=== PATIENT | male | born 1940 | race Asian ===

== ENCOUNTER 2024-01-07 17:11 | Inpatient (IN) ==
[2024-01-07] MEDS: fentaNYL citrate PF 100 MCG/2 ML VIAL IV STA ×3 (17:48→20:35)
[2024-01-07 17:50] LABS: Basophils # (auto) 0.03 K/uL (0.00-0.20); Basophils % (auto) 0.5 %; Eosinophils # (auto) 0.34 K/uL (0.00-0.50); Eosinophils % (auto) 5.9 %; Hematocrit (blood only) 40.2 % (42.0-52.0); Hemoglobin 13.7 g/dl (14.0-18.0); Immature Granulocytes # (auto) 0.02 K/uL (0.01-0.20); Immature Granulocytes % (auto) 0.3 %; Lymphocytes # (auto) 1.74 K/uL (1.20-3.40); Lymphocytes % (auto) 30.1 %; Mean Corpuscular Hemoglobin 31.3 pg (25.0-34.0); Mean Corpuscular Hgb Conc 34.1 g/dL (32.0-36.0); Mean Corpuscular Volume 91.8 fL (80.0-100.0); Mean Platelet Volume 9.1 fL (9.4-12.4); Monocytes # (auto) 0.52 K/uL (0.11-0.59); Neutrophils # (auto) 3.14 K/uL (1.40-6.50); Neutrophils % (auto) 54.2 %; Platelet Count 264 K/uL (130-400); RDW Coefficient of Variation 11.6 % (11.5-14.5); RDW Standard Deviation 39.3 fL (36.4-46.3); Red Blood Count 4.38 M/uL (4.70-6.10); White Blood Count 5.79 K/ul (4.8-10.8)
--- NOTE | 2024-01-07 17:59 | Emergency Department Note ---
Impression & Plan Pancreatitis, Nausea & vomiting ED Provider Note Provider: Poncho Colmenares MD CHIEF COMPLAINT: Chest epigastric pain, short of breath HISTORY OF PRESENT ILLNESS: Patient is a 83-year-old gentleman prediabetic history of enlarged prostate and hypertension presenting here today with and daughter reporting over the past week he has had some intermittent epigastric discomfort. Significant worsened since midday today. Little short of breath but no nausea vomiting or diarrhea. No lower abdominal pain. Pain right at the lower chest quite severe. No trauma. No fevers reported. Does have a distant history about 20 years ago pancreatitis. Some chronic unchanged dizziness patient reports. PAST MEDICAL HISTORY: As noted above MEDICATIONS: Reviewed home medication list SOCIAL HISTORY: PHYSICAL EXAM: GENERAL: alert and oriented appears uncomfortable on stretcher family at bedside Head: normocephalic and atraumatic EYES: No injection, discharge or icterus. EOMI. NECK: Trachea midline. ENT: Mucous membranes pink and moist. LUNGS: Airway patent. No retractions. Breath sounds clear with good air entry bilaterally. HEART: Regular rate and rhythm. No chest wall tenderness ABDOMEN: Soft some acute gastric discomfort but no lower abdominal discomfort. SKIN: Acyanotic, warm, dry, without rashes EXTREMITIES: Without swelling, tenderness or deformity NEUROLOGICAL: No focal deficits. No aphasia. No facial droop or slurred speech. Normal strength and tone in the extremities. Sensation to gross touch normal. Ambulatory. EK bpm normal sinus rhythm. No PVC or PAC. No acute ST segment elevation or depression with a QTc of 396. CONTINUOUS CARDIAC MONITORING: was ordered and showed a heart rate of 60s to 70s bpm in normal sinus rhythm Patient's laboratory studies and imaging reviewed. Differential includes Cardiac ischemia, aortic dissection, pulmonary embolism, pneumothorax, pneumonia, pericarditis, myocarditis, esophageal rupture, GERD, cholecystitis, pancreatitis, musculoskeletal, as well as other pathologies. IMPRESSION/MEDICAL DECISION MAKING: Patient with epigastric lower chest discomfort. No nausea vomiting or diarrhea. Some epigastric tenderness on exam. EKG reassuring. Troponin is sent to look for any occult cardiac etiology. Reports a little bit of shortness of breath but not hypoxic here or significantly tachycardic. He is somewhat hypertensive. Will obtain CT scan to exclude dissection with low suspicion for PE. Do question especially the history of pancreatitis if this could be recurrence. Basic blood work including LFTs and lipase are sent. Given some fentanyl for pain. 1 view chest x-ray quickly obtained without evidence of pneumonia, pneumothorax, or free air per my interpretation although radiology questions may be some streaking on the right base. Blood work here without significant renal dysfunction or electrolyte abnormality notable. No significant anemia on blood work today. Normal white blood cell count and platelet count. No significant bilirubin elevation or and with normal ALT and alkaline phosphatase minimally elevated AST of 98. Lipase of 7300 likely explains his symptoms with pancreatitis. Given some Zofran he did develop some nausea here. CTA without evidence of aortic dissection or aneurysm with some atherosclerotic disease. Numerous gallstones noted in the gallbladder on imaging. Patient without somewhat right upper quadrant pain is mainly epigastric pain believe he is likely suffering predominantly from pancreatitis. Updated patient and family. Given additional doses of fentanyl and Zofran for pain control. Does not appear septic at this time. Given some IV fluids. Will bring into the hospital for further symptom control and care. Hospitalist team contacted. They requested an ultrasound be completed in the right upper quadrant ultrasound was ordered. MRCP ordered by the hospitalist completed as well with findings of acute pancreatitis but no biliary stone or dilation noted by report. Patient admitted by the hospitalist. DIAGNOSIS: Pancreatitis, gastric pain, nausea and vomiting DISPOSITION: Hospitalist will evaluate Patient was agreeable with this plan. Past Med/Surg History Problem List (Updated 01/07/24 @ 18:56 by Poncho Colmenares M.D.) Nausea & vomiting (Acute) Pancreatitis (Acute) Phimosis Enlarged prostate Status post left inguinal hernia repair Encounter for pre-operative examination Constipation (Acute) Syncope, near (Acute) Tympanic membrane perforation Hearing loss Cerumen impaction Left inguinal hernia Diabetes Hypertension Hyperlipemia Medical History BPH (benign prostatic hyperplasia) Glaucoma Hearing deficit History of back problems Hx of pancreatitis Hyperlipidemia Hypertension Prediabetes Surgical History H/O eye surgery H/O right inguinal hernia repair History of cataract surgery History of tooth extraction Hx of colonoscopy Nausea and vomiting after administration of anesthetic agent S/P left inguinal hernia repair (10/04/21) Family History Father Heart disease Hypertension Stroke Brother Hearing loss Heart disease Stroke Asthma Other No family history of adverse response to anesthesia No family history of allergies No family history of bleeding disorder Denies family history of Cancer Social History Smoking Status: Never smoker Second Hand Exposure: No; Do You Dip or Chew Tobacco: No; Hx Alcohol Use: No Hx Substance Use: No Preferred Language: Vietnamese Communication Ability: Effective Visual Impairment: No Limitations Professor Of Literature Required: No Beliefs That Will Affect Care: None marital status: Current Living Situation: Family current occupational status: retired How many Children do You have: 2 Feels Safe at Home: Yes during the past year weight has: decreased > 10 lbs Assistive Devices: Glasses and Hearing Aid - Bilateral Allergies Allergies Allergy/AdvReac Type Severity Reaction Status Date / Time midazolam AdvReac Intermediate vomiting, Verified 11/09/21 11:07 NAUSEA promethazine AdvReac Intermediate urinary Verified 11/09/21 11:07 retention mushroom AdvReac Mild GI SYMPTOMS Verified 11/09/21 11:07 olive extract AdvReac Mild GI SYMPTOMS Verified 11/09/21 11:07 Unclassified Drugs AdvReac Mild ANESTHESIA Uncoded 11/09/21 11:07 - GI SYMPTOMS Home Meds Home Medications Medication Instructions Recorded Confirmed amlodipine 5 mg tablet 5 mg PO QAM 07/13/20 05/07/23 atorvastatin 10 mg tablet 10 mg PO [id number] 07/13/20 05/07/23 brinzolamide 1 % eye 1 drp ophthalmic (eye) BID 07/13/20 05/07/23 drops,suspension (Azopt) dutasteride 0.5 mg-tamsulosin ER 1 cap PO QPM 07/13/20 05/07/23 0.4 mg capsule ext.release 24hr mphas lisinopril 20 1 tab PO QPM 07/13/20 05/07/23 mg-hydrochlorothiazide 25 mg tablet metformin 500 mg tablet 500 mg PO QPM 07/13/20 05/07/23 tafluprost (PF) 0.0015 % eye drops 1 drp ophthalmic (eye) DAILY 07/13/20 05/07/23 in a dropperette (Zioptan (PF)) beta-sitosterol 125 mg-vit D3 10 1 tab PO QPM 09/30/21 05/07/23 [id number] 250 mg tablet (Prostate Max Plus) cholecalciferol (vitamin D3) 50 50 mcg PO DAILY 09/30/21 05/07/23 mcg (2,000 unit) capsule cyanocobalamin (vitamin B-12) 500 500 mcg PO QAM 09/30/21 05/07/23 mcg tablet omega-3 fatty acids-fish oil 360 1 cap PO QAM 09/30/21 05/07/23 mg-1,200 mg capsule (Fish Oil) Previous Rx's Medication Instructions Recorded betamethasone valerate 0.1 % 1 applic topical BID PRN phimosis 05/07/23 topical ointment #15 grams vibegron 75 mg tablet 75 mg PO DAILY #30 tabs 05/07/23 Results & Data (ED) Vital Signs Vital Signs - 24 hr 01/07/24 17:14 01/07/24 17:14 01/07/24 17:14 Temperature Temperature Source Pulse Rate Pulse Rate [Apical] Pulse Rate from SpO2 Sensor Respiratory Rate Respiratory Effort / Characteristics Grunting Labored Respiratory Depth Normal Respiratory Pattern Regular Blood Pressure Blood Pressure [Left Arm] Blood Pressure Mean Blood Pressure Mean [Left Arm] Pulse Oximetry 98 Oxygen Delivery Method Room Air Room Air Room Air Sepsis Recent Fever Within 48 Hours Sepsis New/Unexplained Change in Mental Status Sepsis Action Taken by Nursing 01/07/24 17:19 01/07/24 17:30 01/07/24 17:34 Temperature 36.6 C Temperature Source Skin Pulse Rate 78 71 Pulse Rate [Apical] Pulse Rate from SpO2 Sensor 70 Respiratory Rate 18 25 H Respiratory Effort / Characteristics Respiratory Depth Respiratory Pattern Blood Pressure 141/63 H 154/82 H Blood Pressure [Left Arm] Blood Pressure Mean 89 106 Blood Pressure Mean [Left Arm] Pulse Oximetry 98 98 98 Oxygen Delivery Method Room Air Room Air Sepsis Recent Fever Within 48 Hours No Sepsis New/Unexplained Change in Mental Status No Sepsis Action Taken by Nursing No Action Required 01/07/24 17:36 01/07/24 18:20 01/07/24 18:27 Temperature Temperature Source Pulse Rate 71 64 Pulse Rate [Apical] 62 Pulse Rate from SpO2 Sensor 64 Respiratory Rate 19 17 Respiratory Effort / Characteristics Non-Labored Spontaneous Respiratory Depth Normal Respiratory Pattern Regular Blood Pressure 126/41 L Blood Pressure [Left Arm] 111/50 L Blood Pressure Mean 69 Blood Pressure Mean [Left Arm] 70 Pulse Oximetry 93 96 Oxygen Delivery Method Room Air Sepsis Recent Fever Within 48 Hours Sepsis New/Unexplained Change in Mental Status Sepsis Action Taken by Nursing 01/07/24 19:08 01/07/24 20:02 Temperature Temperature Source Pulse Rate 63 71 Pulse Rate [Apical] Pulse Rate from SpO2 Sensor 65 71 Respiratory Rate 19 17 Respiratory Effort / Characteristics Respiratory Depth Respiratory Pattern Blood Pressure 141/65 H 159/80 H Blood Pressure [Left Arm] Blood Pressure Mean 90 106 Blood Pressure Mean [Left Arm] Pulse Oximetry 97 97 Oxygen Delivery Method Sepsis Recent Fever Within 48 Hours Sepsis New/Unexplained Change in Mental Status Sepsis Action Taken by Nursing Laboratory Data 01/07/24 17:36 01/07/24 17:36 Lab Results 01/07/24 01/07/24 01/07/24 Range/Units 17:36 17:51 17:53 WBC 5.79 (4.8-10.8) K/ul RBC 4.38 L (4.70-6.10) M/uL Hgb 13.7 L (14.0-18.0) g/dl POC Hgb 13.6 L (14.0-18.0) g/dl Hct 40.2 L (42.0-52.0) % POC Hct 40 L (42-52) % MCV 91.8 (80.0-100.0) fL MCH 31.3 (25.0-34.0) pg MCHC 34.1 (32.0-36.0) g/dL RDW Std Deviation 39.3 (36.4-46.3) fL RDW Coeff of Selina 11.6 (11.5-14.5) % Plt Count 264 (130-400) K/uL MPV 9.1 L (9.4-12.4) fL Immature Gran % (Auto) 0.3 % Neut % (Auto) 54.2 % Lymph % (Auto) 30.1 % [place] % (Auto) 9.0 % Eos % (Auto) 5.9 % Baso % (Auto) 0.5 % Neut # (Auto) 3.14 (1.40-6.50) K/uL Lymph # (Auto) 1.74 (1.20-3.40) K/uL [place] # (Auto) 0.52 (0.11-0.59) K/uL Eos # (Auto) 0.34 (0.00-0.50) K/uL Baso # (Auto) 0.03 (0.00-0.20) K/uL Immature Gran # (Auto) 0.02 (0.01-0.20) K/uL PT 10.9 (9.0-12.0) Seconds INR 1.0 (0.9-1.1) APTT 25 (21-31) Seconds PTT Ratio 0.9 POC Sodium 136 (135-144) mmol/L Sodium 136 (136-145) mmol/L POC Potassium 3.9 (3.3-5.0) mmol/L Potassium 4.0 (3.5-5.1) mmol/L POC Chloride 98 L (101-112) mmol/L Chloride 99 (98-107) mmol/L Carbon Dioxide 31 (21-32) mmol/L POC Total CO2 25 (24-31) mmol/L Anion Gap 6 (3-11) POC Anion Gap 17.0 (16-25) mmol/L POC BUN 13 (7-18) mg/dl BUN 15 (6-23) mg/dl Creatinine 0.75 (0.6-1.4) mg/dl POC Creatinine 0.7 (0.6-1.3) mg/dl Est Cr Clr Drug Dosing 61.4 ml/min eGFR 88.98 BUN/Creatinine Ratio 20.0 (10-20) Glucose 131 H (70-99(Fasting)) mg/dl POC Glucose 139 H (70-99) mg/dl POC Glucose (other) 125 H (70-99) mg/dl Calcium 10.0 (8.6-10.3) mg/dl POC Ioniz Calcium Yosef 1.23 (1.12-1.32) mmol/l Total Bilirubin 0.9 (0.2-1.0) mg/dl AST 98 H (13-39) U/L ALT 50 (7-52) U/L Alkaline Phosphatase 79 (34-104) U/L Troponin I High Sens 6.0 (0-20) pg/ml Total Protein 7.5 (6.0-8.3) gm/dl Albumin 4.5 (3.4-5.0) gm/dl Globulin 3.0 (2.5-4.0) gm/dl Albumin/Globulin Ratio 1.5 (0.9-2) Lipase 7381 H (11-82) U/L Administered Medications Discontinued Medications Fentanyl Citrate (Fentanyl Citrate Pf 100 Mcg/2 Ml Vial) 50 mcg IV NOW STA Stop: 01/07/24 17:43 Last Admin: 01/07/24 17:48 Dose: 50 mcg Documented By: MARY BETH Fentanyl Citrate (Fentanyl Citrate Pf 100 Mcg/2 Ml Vial) 50 mcg IV NOW STA Stop: 01/07/24 18:40 Last Admin: 01/07/24 18:46 Dose: 50 mcg Documented By: VASILE Fentanyl Citrate (Fentanyl Citrate Pf 100 Mcg/2 Ml Vial) 50 mcg IV NOW STA Stop: 01/07/24 19:31 Last Admin: 01/07/24 20:35 Dose: Not Given Documented By: VASILE Hydromorphone HCl (Hydromorphone Inj 0.5 Mg/0.5 Ml Syr) 0.25 mg IV NOW STA Stop: 01/07/24 19:37 Last Admin: 01/07/24 19:53 Dose: 0.25 mg Documented By: VASILE Sodium Chloride (Nss) 500 mls @ 999 mls/hr IV .Q31M ONE Stop: 01/07/24 19:22 Last Infusion: 01/07/24 19:59 Dose: Infused Documented By: Admin: 01/07/24 18:58 Dose: 999 mls/hr Documented By: VASILE Ioversol (Optiray 320 125ml) 119 ml IV ONCE ONE Stop: 01/07/24 18:10 Last Admin: 01/07/24 18:12 Dose: 119 ml Documented By: OLLIE Ondansetron HCl (Ondansetron Inj 2 Mg/Ml 2 Ml Vial) 4 mg IV NOW STA Stop: 01/07/24 18:17 Last Admin: 01/07/24 18:18 Dose: 4 mg Documented By: MARY BETH Ondansetron HCl (Ondansetron Inj 2 Mg/Ml 2 Ml Vial) Confirm Administered Dose 4 mg .ROUTE .STK-MED ONE Stop: 01/07/24 18:18 Last Admin: 01/07/24 18:18 Dose: Not Given Documented By: MARY BETH Ondansetron HCl (Ondansetron Inj 2 Mg/Ml 2 Ml Vial) 4 mg IV NOW STA Stop: 01/07/24 18:53 Last Admin: 01/07/24 18:58 Dose: 4 mg Documented By: VASILE Ondansetron HCl (Ondansetron Inj 2 Mg/Ml 2 Ml Vial) 4 mg IV NOW STA Stop: 01/07/24 19:31 Last Admin: 01/07/24 19:52 Dose: 4 mg Documented By: VASILE Imaging Data Radiologist's Impression: Chest X-Ray 01/07/24 17:34 EXAM: X-ray chest one-view portable CLINICAL HISTORY: Chest pain PRIORS: None TECHNIQUE: Upright portable AP chest frontal FINDINGS: Patient is rotated. Lung volumes are diminished. Mediastinum may be widened on the basis of patient rotation. Moderate atherosclerotic disease of the aorta within the [id number]. No pleural effusion. Possible subtle opacification in the right lung base. Heart size is normal. No pneumothorax. Trachea is patent. Osseous structures demonstrate no acute abnormality. No radiopaque foreign body. IMPRESSION: The possibility of streaky opacity in the right lower lobe is raised, allowing for patient rotation. Finding could suggest pneumonia in the proper clinical setting. Please correlate clinically. ACT 112: Positive. There are findings on this examination that require communication between the performing entity and the patient following Patient Test Result Information Act ([place] ACT 112) guidelines. Electronically signed by Marva Sultana 01-07-2024 6:09 PM Abdomen/Pelvis CTA 01/07/24 17:43 EXAMINATION: CT angio abdomen pelvis with con CLINICAL HISTORY: Epigastric pain, dyspnea PRIORS: None TECHNIQUE: Contiguous CTA axial images were obtained through the abdomen and pelvis with the use of intravenous contrast. Sagittal and coronal reformations are supplied. FINDINGS: The abdominal aorta is normal in caliber with moderate atherosclerotic disease. No intimal flap, surrounding inflammatory change or extravasation. No aneurysmal dilatation. No retroperitoneal hemorrhage. Allowing for arterial phase, the gallbladder contains innumerable layering gallstones. The liver, pancreas, spleen, stomach, adrenals, kidneys are morphologically unremarkable. Appendix is normal in the right lower quadrant. Urinary bladder shows circumferential wall thickening with moderate enlargement of the prostate. A moderate to large amount of formed stool present in the colon. No pericolonic inflammatory change. No free fluid in the pelvis. No hemoperitoneum. In bone windows, moderate osseous demineralization noted. Degenerative change of the lumbosacral spine. IMPRESSION: 1. No CTA evidence of an abdominal aorta dissection or aneurysmal dilatation. 2. Innumerable gallstones identified within the gallbladder lumen. Right upper quadrant ultrasound could be considered given the history of epigastric pain. Electronically signed by Marva Sultana 01-07-2024 6:49 PM Chest CTA 01/07/24 17:43 EXAMINATION: CT angio chest dissection without/with contrast CLINICAL HISTORY: Epigastric pain, dyspnea PRIORS: Chest x-ray 01/07/2024 TECHNIQUE: Contiguous axial images were obtained through the chest with the use of intravenous contrast. Sagittal and coronal reformations are supplied. FINDINGS: Noncontrast enhanced images show advanced atherosclerotic disease of the thoracic aorta. No fluid in the mediastinum or surrounding inflammatory change. No pneumomediastinum. Contrast-enhanced images show the ascending aorta measures 3.6 x 3.4 cm, allowing for the absence of gating with no intimal flap or extravasation identified. The descending thoracic aorta demonstrates advanced atherosclerotic disease with no dissection or hemodynamically significant stenosis. Heart size is enlarged. No central pulmonary embolism is identified. No pleural or pericardial effusion. Liquid within the distal portion of the esophagus within the [id number]. No adenopathy in the chest. In lung windows, chest is well-expanded. No dominant mass or airspace consolidation. No pneumothorax. No displaced rib fracture. Moderate osseous demineralization and degenerative change throughout the thoracic spine. IMPRESSION: 1. No CTA evidence of a thoracic aorta dissection. 2. Ascending aorta measures approximately 3.6 cm with moderate atherosclerotic disease. 3. No acute cardiopulmonary process. Electronically signed by Marva Sultana 01-07-2024 6:49 PM Cholangiopancreatography MRI 01/07/24 19:32 Exam(s): MRI MRCP EXAM: MR Abdomen Without Intravenous Contrast, MRCP Protocol CLINICAL HISTORY: Reason for exam: transaminitis, pancreatitis, gallstones. TECHNIQUE: Multiplanar magnetic resonance images of the abdomen without intravenous contrast using MRCP protocol. COMPARISON: CTA abdomen and pelvis 01/07/24 FINDINGS: Lung bases are clear. There is cholelithiasis, gallbladder distention, gallbladder wall edema. There is no intrahepatic or extrahepatic biliary dilatation. Common bile duct measures 7 mm, normal in caliber for patient age. There is no choledocholithiasis. Liver, spleen, and adrenal glands are unremarkable. There is a benign subcentimeter T2 hyperintense cyst in the left kidney; no follow-up is indicated. Kidneys appear otherwise unremarkable. There is no hydronephrosis. There is edema and fluid along the pancreas without pancreatic duct dilatation or organized peripancreatic collection. IMPRESSION: 1. Peripancreatic edema and fluid suggesting acute pancreatitis. Correlate with serum lipase. 2. Cholelithiasis and gallbladder wall edema, cholecystitis not excluded. 3. No biliary dilatation or choledocholithiasis. Electronically signed by: Hipolito Barkley M.D. 01/07/24 21:31 PM Discharge Plan Visit Data Chief Complaint: Chest Pain Stated Complaint: SOB, CHEST PAIN, ABD PAIN ED Provider: Poncho Colmenares Discharge Problem: Pancreatitis, Nausea & vomiting Patient Disposition: Being Evaluated by Hospitalist Forms Stand Alone Forms: My [facility] Prescriptions Prescriptions: No Action cholecalciferol (vitamin D3) 50 mcg (2,000 unit) capsule 50 mcg PO DAILY omega-3 fatty acids-fish oil [Fish Oil] 360-1,200 mg capsule 1 cap PO QAM Prostate Max Plus 125 mg-10 mcg- 250 mg tablet 1 tab PO QPM lisinopril-hydrochlorothiazide 20-25 mg tablet 1 tab PO QPM amlodipine 5 mg tablet 5 mg PO QAM atorvastatin 10 mg tablet 10 mg PO [id number] metformin 500 mg tablet 500 mg PO QPM dutasteride-tamsulosin 0.5-0.4 mg capsule, ER multiphase 24 hr 1 cap PO QPM brinzolamide [Azopt] 1 % drops,suspension 1 drp ophthalmic (eye) BID Patient Comments: LEFT EYE Zioptan (PF) 0.0015 % dropperette 1 drp ophthalmic (eye) DAILY Patient Comments: LEFT EYE Rx Instructions: administer at bedtime betamethasone valerate 0.1 % ointment 1 applic topical BID PRN (Reason: phimosis) Qty: 15 0RF vibegron 75 mg tablet 75 mg PO DAILY Qty: 30 2RF cyanocobalamin (vitamin B-12) 500 mcg Tablet 500 mcg PO QAM Referrals Referrals: Brice Montoya DO [Primary Care Provider] - Discharge Problem: Pancreatitis Qualifiers: Chronicity: acute
[2024-01-07 18:02] LABS: Creatinine Clr Calc Pharmacy 61.4 ml/min
[2024-01-07 18:05] LABS: iSTAT Creatinine 0.7 mg/dl (0.6-1.3); iSTAT Hemoglobin 13.6 g/dl (14.0-18.0); iSTAT Ionized Calcium 1.23 mmol/l (1.12-1.32); iSTAT Potassium 3.9 mmol/L (3.3-5.0)
--- NOTE | 2024-01-07 18:09 | XRay Report ---
EXAM: X-ray chest one-view portable CLINICAL HISTORY: Chest pain PRIORS: None TECHNIQUE: Upright portable AP chest frontal FINDINGS: Patient is rotated. Lung volumes are diminished. Mediastinum may be widened on the basis of patient rotation. Moderate atherosclerotic disease of the aorta within the [id number]. No pleural effusion. Possible subtle opacification in the right lung base. Heart size is normal. No pneumothorax. Trachea is patent. Osseous structures demonstrate no acute abnormality. No radiopaque foreign body. IMPRESSION: The possibility of streaky opacity in the right lower lobe is raised, allowing for patient rotation. Finding could suggest pneumonia in the proper clinical setting. Please correlate clinically. ACT 112: Positive. There are findings on this examination that require communication between the performing entity and the patient following Patient Test Result Information Act ([place] ACT 112) guidelines. Electronically signed by Marva Sultana 01-07-2024 6:09 PM
[2024-01-07] MEDS: OPTIRAY 320 125ml IV ONE (18:12)
[2024-01-07 18:15] LABS: Partial Thromboplastin Ratio 0.9; Partial Thromboplastin Time 25 Seconds (21-31); Prothrombin Time 10.9 Seconds (9.0-12.0)
[2024-01-07 18:18] LABS: Albumin Globulin Ratio 1.5 (0.9-2); Albumin Level 4.5 gm/dl (3.4-5.0); Bilirubin,Total 0.9 mg/dl (0.2-1.0); Total Protein 7.5 gm/dl (6.0-8.3)
[2024-01-07] MEDS: ONDANSETRON INJ 2 MG/ML 2 ML VIAL ONE (18:18)
[2024-01-07] MEDS: ONDANSETRON INJ 2 MG/ML 2 ML VIAL IV STA ×3 (18:18→19:52)
--- NOTE | 2024-01-07 18:49 | CT Scan Report ---
EXAMINATION: CT angio chest dissection without/with contrast CLINICAL HISTORY: Epigastric pain, dyspnea PRIORS: Chest x-ray 01/07/2024 TECHNIQUE: Contiguous axial images were obtained through the chest with the use of intravenous contrast. Sagittal and coronal reformations are supplied. FINDINGS: Noncontrast enhanced images show advanced atherosclerotic disease of the thoracic aorta. No fluid in the mediastinum or surrounding inflammatory change. No pneumomediastinum. Contrast-enhanced images show the ascending aorta measures 3.6 x 3.4 cm, allowing for the absence of gating with no intimal flap or extravasation identified. The descending thoracic aorta demonstrates advanced atherosclerotic disease with no dissection or hemodynamically significant stenosis. Heart size is enlarged. No central pulmonary embolism is identified. No pleural or pericardial effusion. Liquid within the distal portion of the esophagus within the [id number]. No adenopathy in the chest. In lung windows, chest is well-expanded. No dominant mass or airspace consolidation. No pneumothorax. No displaced rib fracture. Moderate osseous demineralization and degenerative change throughout the thoracic spine. IMPRESSION: 1. No CTA evidence of a thoracic aorta dissection. 2. Ascending aorta measures approximately 3.6 cm with moderate atherosclerotic disease. 3. No acute cardiopulmonary process. Electronically signed by Marva Sultana 01-07-2024 6:49 PM
--- NOTE | 2024-01-07 18:49 | CT Scan Report ---
EXAMINATION: CT angio abdomen pelvis with con CLINICAL HISTORY: Epigastric pain, dyspnea PRIORS: None TECHNIQUE: Contiguous CTA axial images were obtained through the abdomen and pelvis with the use of intravenous contrast. Sagittal and coronal reformations are supplied. FINDINGS: The abdominal aorta is normal in caliber with moderate atherosclerotic disease. No intimal flap, surrounding inflammatory change or extravasation. No aneurysmal dilatation. No retroperitoneal hemorrhage. Allowing for arterial phase, the gallbladder contains innumerable layering gallstones. The liver, pancreas, spleen, stomach, adrenals, kidneys are morphologically unremarkable. Appendix is normal in the right lower quadrant. Urinary bladder shows circumferential wall thickening with moderate enlargement of the prostate. A moderate to large amount of formed stool present in the colon. No pericolonic inflammatory change. No free fluid in the pelvis. No hemoperitoneum. In bone windows, moderate osseous demineralization noted. Degenerative change of the lumbosacral spine. IMPRESSION: 1. No CTA evidence of an abdominal aorta dissection or aneurysmal dilatation. 2. Innumerable gallstones identified within the gallbladder lumen. Right upper quadrant ultrasound could be considered given the history of epigastric pain. Electronically signed by Marva Sultana 01-07-2024 6:49 PM
[2024-01-07] MEDS: SODIUM CHLORIDE 0.9% 500 ML IV ONE (18:58)
[2024-01-07] MEDS: HYDROmorphone INJ 0.5 MG/0.5 ML SYR IV STA (19:53)
--- NOTE | 2024-01-07 21:32 | Magnetic Resonance Report ---
Exam(s): MRI MRCP EXAM: MR Abdomen Without Intravenous Contrast, MRCP Protocol CLINICAL HISTORY: Reason for exam: transaminitis, pancreatitis, gallstones. TECHNIQUE: Multiplanar magnetic resonance images of the abdomen without intravenous contrast using MRCP protocol. COMPARISON: CTA abdomen and pelvis 01/07/24 FINDINGS: Lung bases are clear. There is cholelithiasis, gallbladder distention, gallbladder wall edema. There is no intrahepatic or extrahepatic biliary dilatation. Common bile duct measures 7 mm, normal in caliber for patient age. There is no choledocholithiasis. Liver, spleen, and adrenal glands are unremarkable. There is a benign subcentimeter T2 hyperintense cyst in the left kidney; no follow-up is indicated. Kidneys appear otherwise unremarkable. There is no hydronephrosis. There is edema and fluid along the pancreas without pancreatic duct dilatation or organized peripancreatic collection. IMPRESSION: 1. Peripancreatic edema and fluid suggesting acute pancreatitis. Correlate with serum lipase. 2. Cholelithiasis and gallbladder wall edema, cholecystitis not excluded. 3. No biliary dilatation or choledocholithiasis. Electronically signed by: Hipolito Barkley M.D. 01/07/24 21:31 PM
--- NOTE | 2024-01-07 22:14 | Ultrasound Report ---
Exam(s): US LIVER EXAM: US Abdomen Limited CLINICAL HISTORY: Reason for exam: pain, pancreatitis, stones?. TECHNIQUE: Real-time ultrasound of the abdomen with image documentation. COMPARISON: No relevant prior studies available. FINDINGS: Liver: Subcentimeter echogenic left hepatic lobe lesion, nonspecific, potentially hemangioma. Liver measures 12.5 cm. Portal vein patent and normally directed. Gallbladder: Cholelithiasis, gallbladder distention, and wall thickening measuring up to 8 mm. Common bile duct: No biliary dilatation. CBD measures 3 mm. Pancreas: Hypoechoic appearance of the pancreas, which can be seen with pancreatitis. IMPRESSION: 1. Cholelithiasis, gallbladder distention, and wall thickening measuring up to 8 mm. Imaging appearance raises the possibility of cholecystitis. Geller sign reported as negative, although status of premedication is unknown. 2. Hypoechoic appearance of the pancreas, which can be seen with pancreatitis. Correlate with serum lipase. Electronically signed by: Hipolito Barkley M.D. 01/07/24 22:13 PM
[2024-01-07] MEDS: SODIUM CHLORIDE 0.9% 1,000 ML IV ONE (22:18)
[2024-01-07] MEDS: PIPERACILLIN/TAZOBACTAM 4.5 GM/100 ML BAG IV STA (22:19)
[2024-01-07] MEDS: PANTOprazole 40 MG/10 ML SYR IV ONE (22:19)
[2024-01-07] MEDS: KETOROLAC TROMETHAMINE 15 MG/ML VIAL IV PRN (23:40)
--- NOTE | 2024-01-08 00:03 | History & Physical Report ---
Date of Service January 08, 2024 Patient was seen and examined on 01/07/24 Assessment & Plan (1) Pancreatitis: (2) Abdominal pain with vomiting: (3) Nausea & vomiting: (4) Hypertension: (5) Diabetes: (6) Hyperlipemia: Plan Pancreatitis- CT angiography/pelvis with innumerable gallstones identified within the gallbladder lumen, with suggestion to order right upper quadrant ultrasound. CT angiography chest was negative for aortic dissection Liver ultrasound showed cholelithiasis, gallbladder distention and wall thickening measuring up to 8 mm. Imaging appearance raises the possibility of cholecystitis , but Geller sign was negative. Hypoechoic appearance of the pancreas could be seen with pancreatitis MRCP showed peripancreatic edema and fluid suggesting acute pancreatitis. Cholelithiasis and gallbladder wall edema, with cholecystitis not excluded NPO Lipase 7381, AST 98, follow labs serially Toradol 10 mg IV every 6 hours as needed for mild pain or fever Dilaudid 0.25 mg IV every 3 hours as needed for moderate pain Dilaudid 0.5 mg IV every 3 hours as needed for severe pain Zofran 4 mg IV every 6 hours as needed Zosyn 4.5 g IV every 8 hours Status post 1 L normal saline bolus from the ED, and will give additional 1 L bolus now, then NSS + KCl 20 mill equivalents at 80 mL/h Consult general surgery for the a.m. Hypertension- Hold amlodipine, lisinopril/HCTZ Hydralazine 10 mg IV every 4 hours as needed for systolic blood pressure greater than 160 Diabetes mellitus- Hold metformin Placed on Accu-Cheks with NovoLog SSI BPH with LUTS- Hold dutasteride and tamsulosin Follow urine output History of Present Illness Chief Complaint: The patient presents to the emergency department with his and daughter, having progressively worsening epigastric discomfort over the past week, but worsened significantly since midday today. Primary Care Provider: Brice Montoya DO The patient is an 83-year-old male past medical history including hypertension, hyperlipidemia, B12 deficiency, BPH with LUTS, diabetes mellitus and history of pancreatitis about 20 years ago. He presents to the emergency department with acute worsening today of intermittent epigastric pain that began over the past week. He denies any recent travels or sick exposures. He is not aware of any concerning food intakes. Allergies Allergy/AdvReac Type Severity Reaction Status Date / Time midazolam AdvReac Intermediate vomiting, Verified 11/09/21 11:07 NAUSEA promethazine AdvReac Intermediate urinary Verified 11/09/21 11:07 retention mushroom AdvReac Mild GI SYMPTOMS Verified 11/09/21 11:07 olive extract AdvReac Mild GI SYMPTOMS Verified 11/09/21 11:07 Home Medications Medication Instructions Recorded Confirmed Type amlodipine 5 mg tablet 5 mg PO QAM 07/13/20 05/07/23 History atorvastatin 10 mg tablet 10 mg PO [id number] 07/13/20 05/07/23 History brinzolamide 1 % eye 1 drp ophthalmic (eye) BID 07/13/20 05/07/23 History drops,suspension (Azopt) dutasteride 0.5 mg-tamsulosin ER 1 cap PO QPM 07/13/20 05/07/23 History 0.4 mg capsule ext.release 24hr mphas lisinopril 20 1 tab PO QPM 07/13/20 05/07/23 History mg-hydrochlorothiazide 25 mg tablet metformin 500 mg tablet 500 mg PO QPM 07/13/20 05/07/23 History tafluprost (PF) 0.0015 % eye drops 1 drp ophthalmic (eye) DAILY 07/13/20 05/07/23 History in a dropperette (Zioptan (PF)) beta-sitosterol 125 mg-vit D3 10 1 tab PO QPM 09/30/21 05/07/23 History lmo-csakpofc-insatzrmy 250 mg tablet (Prostate Max Plus) cholecalciferol (vitamin D3) 50 50 mcg PO DAILY 09/30/21 05/07/23 History mcg (2,000 unit) capsule cyanocobalamin (vitamin B-12) 500 500 mcg PO QAM 09/30/21 05/07/23 History mcg tablet omega-3 fatty acids-fish oil 360 1 cap PO QAM 09/30/21 05/07/23 History mg-1,200 mg capsule (Fish Oil) betamethasone valerate 0.1 % 1 applic topical BID PRN phimosis 05/07/23 05/07/23 Rx topical ointment #15 grams vibegron 75 mg tablet 75 mg PO DAILY #30 tabs 05/07/23 05/07/23 Rx Past Med/Surg History Problem List (Updated 01/08/24 @ 03:08 by Stephen Santiago MD) Abdominal pain with vomiting Nausea & vomiting (Acute) Pancreatitis (Acute) Phimosis Enlarged prostate Status post left inguinal hernia repair Encounter for pre-operative examination Constipation (Acute) Syncope, near (Acute) Tympanic membrane perforation Hearing loss Cerumen impaction Left inguinal hernia Diabetes Hypertension Hyperlipemia Medical History BPH (benign prostatic hyperplasia) Glaucoma Hearing deficit History of back problems Hx of pancreatitis Hyperlipidemia Hypertension Prediabetes Surgical History H/O eye surgery H/O right inguinal hernia repair History of cataract surgery History of tooth extraction Hx of colonoscopy Nausea and vomiting after administration of anesthetic agent S/P left inguinal hernia repair (10/04/21) Family History Father Heart disease Hypertension Stroke Brother Hearing loss Heart disease Stroke Asthma Other No family history of adverse response to anesthesia No family history of allergies No family history of bleeding disorder Denies family history of Cancer Social History Smoking Status: Never smoker Second Hand Exposure: No; Do You Dip or Chew Tobacco: No; Hx Alcohol Use: No Hx Substance Use: No Preferred Language: [place]atian Communication Ability: Effective Visual Impairment: No Limitations Lubricator Granulator Required: No Beliefs That Will Affect Care: None marital status: Current Living Situation: Spouse and Family Current Living Situation Comment: and daughter current occupational status: retired How many Children do You have: 2 Feels Safe at Home: Yes during the past year weight has: decreased > 10 lbs Assistive Devices: Hearing Aid - Bilateral Review of Systems Review of Systems: The patient denies chest pain, palpitations, shortness of breath, dyspnea on exertion, cough, lower extremity swelling, sore throat, fevers, chills, sweats, blood in urine or stool, dysuria, urinary frequency or urgency, lightheadedness, dizziness, headache, memory loss, loss of consciousness, rash, abnormal bruising or bleeding, imbalance, focal weakness, numbness or tingling in arms or legs, generalized arthralgias or myalgias, neck pain, or night sweats. The review of systems is otherwise negative other than for that already noted above, and at least 10 systems have been reviewed. Physical Exam Physical Exam: The patient is awake, alert and oriented 3, well developed and well nourished, normocephalic and atraumatic, lying in bed and in moderate distress secondary to epigastric abdominal discomfort HEENT--PERRL, EOMI, mucous membranes and oropharynx dry. Neck--supple. No JVD. No bruits. Thyroid normal, trachea midline, no adenopathy. Heart--normal S1 and S2. No murmurs, rubs or gallops. Lungs--clear bilaterally, no respiratory distress, no accessory muscle use. Abdomen--normal bowel sounds and soft. Moderately tender and tympanitic Extremities--No edema. Dermatologic--normal skin turgor, normal color, no abnormal lymph nodes, no rash. Neurologic--cranial nerves II through XII grossly intact. Rheumatologic--normal range of motion. Psychiatric--normal affect. Results & Data Results & Data Vital Signs (Past 12 Hours) Vital Signs Temp Pulse Pulse Resp BP BP Pulse Ox 01/07/24 23:00 81 21 169/92 H 96 01/07/24 20:02 71 17 159/80 H 97 01/07/24 19:08 63 19 141/65 H 97 01/07/24 18:27 64 17 126/41 L 96 01/07/24 18:20 62 19 111/50 L 93 01/07/24 17:36 71 01/07/24 17:34 98 01/07/24 17:30 71 25 H 154/82 H 98 01/07/24 17:19 36.6 C 78 18 141/63 H 98 01/07/24 17:14 98 01/07/24 17:14 01/07/24 17:14 O2 Del Method 01/07/24 23:00 Room Air 01/07/24 20:02 01/07/24 19:08 01/07/24 18:27 01/07/24 18:20 Room Air 01/07/24 17:36 01/07/24 17:34 Room Air 01/07/24 17:30 01/07/24 17:19 Room Air 01/07/24 17:14 Room Air 01/07/24 17:14 Room Air 01/07/24 17:14 Room Air Laboratory Results Laboratory Results WBC 5.79 K/ul (4.8-10.8) 01/07/24 17:36 RBC 4.38 M/uL (4.70-6.10) L 01/07/24 17:36 Hgb 13.7 g/dl (14.0-18.0) L 01/07/24 17:36 POC Hgb 13.6 g/dl (14.0-18.0) L 01/07/24 17:53 Hct 40.2 % (42.0-52.0) L 01/07/24 17:36 POC Hct 40 % (42-52) L 01/07/24 17:53 MCV 91.8 fL (80.0-100.0) 01/07/24 17:36 MCH 31.3 pg (25.0-34.0) 01/07/24 17:36 MCHC 34.1 g/dL (32.0-36.0) 01/07/24 17:36 RDW Std Deviation 39.3 fL (36.4-46.3) 01/07/24 17:36 RDW Coeff of Selina 11.6 % (11.5-14.5) 01/07/24 17:36 Plt Count 264 K/uL (130-400) 01/07/24 17:36 MPV 9.1 fL (9.4-12.4) L 01/07/24 17:36 Immature Gran % (Auto) 0.3 % 01/07/24 17:36 Neut % (Auto) 54.2 % 01/07/24 17:36 Lymph % (Auto) 30.1 % 01/07/24 17:36 [place] % (Auto) 9.0 % 01/07/24 17:36 Eos % (Auto) 5.9 % 01/07/24 17:36 Baso % (Auto) 0.5 % 01/07/24 17:36 Neut # (Auto) 3.14 K/uL (1.40-6.50) 01/07/24 17:36 Lymph # (Auto) 1.74 K/uL (1.20-3.40) 01/07/24 17:36 [place] # (Auto) 0.52 K/uL (0.11-0.59) 01/07/24 17:36 Eos # (Auto) 0.34 K/uL (0.00-0.50) 01/07/24 17:36 Baso # (Auto) 0.03 K/uL (0.00-0.20) 01/07/24 17:36 Immature Gran # (Auto) 0.02 K/uL (0.01-0.20) 01/07/24 17:36 PT 10.9 Seconds (9.0-12.0) 01/07/24 17:36 INR 1.0 (0.9-1.1) 01/07/24 17:36 APTT 25 Seconds (21-31) 01/07/24 17:36 PTT Ratio 0.9 01/07/24 17:36 POC Sodium 136 mmol/L (135-144) 01/07/24 17:53 Sodium 136 mmol/L (136-145) 01/07/24 17:36 POC Potassium 3.9 mmol/L (3.3-5.0) 01/07/24 17:53 Potassium 4.0 mmol/L (3.5-5.1) 01/07/24 17:36 POC Chloride 98 mmol/L (101-112) L 01/07/24 17:53 Chloride 99 mmol/L (98-107) 01/07/24 17:36 Carbon Dioxide 31 mmol/L (21-32) 01/07/24 17:36 POC Total CO2 25 mmol/L (24-31) 01/07/24 17:53 Anion Gap 6 (3-11) 01/07/24 17:36 POC Anion Gap 17.0 mmol/L (16-25) 01/07/24 17:53 POC BUN 13 mg/dl (7-18) 01/07/24 17:53 BUN 15 mg/dl (6-23) 01/07/24 17:36 Creatinine 0.75 mg/dl (0.6-1.4) 01/07/24 17:36 POC Creatinine 0.7 mg/dl (0.6-1.3) 01/07/24 17:53 Est Cr Clr Drug Dosing 61.4 ml/min 01/07/24 17:36 eGFR 88.98 01/07/24 17:36 BUN/Creatinine Ratio 20.0 (10-20) 01/07/24 17:36 Glucose 131 mg/dl (70-99(Fasting)) H 01/07/24 17:36 POC Glucose 139 mg/dl (70-99) H 01/07/24 17:51 POC Glucose (other) 125 mg/dl (70-99) H 01/07/24 17:53 Calcium 10.0 mg/dl (8.6-10.3) 01/07/24 17:36 POC Ioniz Calcium Yosef 1.23 mmol/l (1.12-1.32) 01/07/24 17:53 Total Bilirubin 0.9 mg/dl (0.2-1.0) 01/07/24 17:36 AST 98 U/L (13-39) H 01/07/24 17:36 ALT 50 U/L (7-52) 01/07/24 17:36 Alkaline Phosphatase 79 U/L (34-104) 01/07/24 17:36 Troponin I High Sens 6.0 pg/ml (0-20) 01/07/24 17:36 Total Protein 7.5 gm/dl (6.0-8.3) 01/07/24 17:36 Albumin 4.5 gm/dl (3.4-5.0) 01/07/24 17:36 Globulin 3.0 gm/dl (2.5-4.0) 01/07/24 17:36 Albumin/Globulin Ratio 1.5 (0.9-2) 01/07/24 17:36 Lipase 7381 U/L (11-82) H 01/07/24 17:36 Impressions Chest X-Ray 01/07/24 17:34 EXAM: X-ray chest one-view portable CLINICAL HISTORY: Chest pain PRIORS: None TECHNIQUE: Upright portable AP chest frontal FINDINGS: Patient is rotated. Lung volumes are diminished. Mediastinum may be widened on the basis of patient rotation. Moderate atherosclerotic disease of the aorta within the [id number]. No pleural effusion. Possible subtle opacification in the right lung base. Heart size is normal. No pneumothorax. Trachea is patent. Osseous structures demonstrate no acute abnormality. No radiopaque foreign body. IMPRESSION: The possibility of streaky opacity in the right lower lobe is raised, allowing for patient rotation. Finding could suggest pneumonia in the proper clinical setting. Please correlate clinically. ACT 112: Positive. There are findings on this examination that require communication between the performing entity and the patient following Patient Test Result Information Act ([place] ACT 112) guidelines. Electronically signed by Marva Sultana 01-07-2024 6:09 PM Abdomen/Pelvis CTA 01/07/24 17:43 EXAMINATION: CT angio abdomen pelvis with con CLINICAL HISTORY: Epigastric pain, dyspnea PRIORS: None TECHNIQUE: Contiguous CTA axial images were obtained through the abdomen and pelvis with the use of intravenous contrast. Sagittal and coronal reformations are supplied. FINDINGS: The abdominal aorta is normal in caliber with moderate atherosclerotic disease. No intimal flap, surrounding inflammatory change or extravasation. No aneurysmal dilatation. No retroperitoneal hemorrhage. Allowing for arterial phase, the gallbladder contains innumerable layering gallstones. The liver, pancreas, spleen, stomach, adrenals, kidneys are morphologically unremarkable. Appendix is normal in the right lower quadrant. Urinary bladder shows circumferential wall thickening with moderate enlargement of the prostate. A moderate to large amount of formed stool present in the colon. No pericolonic inflammatory change. No free fluid in the pelvis. No hemoperitoneum. In bone windows, moderate osseous demineralization noted. Degenerative change of the lumbosacral spine. IMPRESSION: 1. No CTA evidence of an abdominal aorta dissection or aneurysmal dilatation. 2. Innumerable gallstones identified within the gallbladder lumen. Right upper quadrant ultrasound could be considered given the history of epigastric pain. Electronically signed by Marva Sultana 01-07-2024 6:49 PM Chest CTA 01/07/24 17:43 EXAMINATION: CT angio chest dissection without/with contrast CLINICAL HISTORY: Epigastric pain, dyspnea PRIORS: Chest x-ray 01/07/2024 TECHNIQUE: Contiguous axial images were obtained through the chest with the use of intravenous contrast. Sagittal and coronal reformations are supplied. FINDINGS: Noncontrast enhanced images show advanced atherosclerotic disease of the thoracic aorta. No fluid in the mediastinum or surrounding inflammatory change. No pneumomediastinum. Contrast-enhanced images show the ascending aorta measures 3.6 x 3.4 cm, allowing for the absence of gating with no intimal flap or extravasation identified. The descending thoracic aorta demonstrates advanced atherosclerotic disease with no dissection or hemodynamically significant stenosis. Heart size is enlarged. No central pulmonary embolism is identified. No pleural or pericardial effusion. Liquid within the distal portion of the esophagus within the [id number]. No adenopathy in the chest. In lung windows, chest is well-expanded. No dominant mass or airspace consolidation. No pneumothorax. No displaced rib fracture. Moderate osseous demineralization and degenerative change throughout the thoracic spine. IMPRESSION: 1. No CTA evidence of a thoracic aorta dissection. 2. Ascending aorta measures approximately 3.6 cm with moderate atherosclerotic disease. 3. No acute cardiopulmonary process. Electronically signed by Marva Sultana 01-07-2024 6:49 PM Liver Ultrasound 01/07/24 19:30 Exam(s): US LIVER EXAM: US Abdomen Limited CLINICAL HISTORY: Reason for exam: pain, pancreatitis, stones?. TECHNIQUE: Real-time ultrasound of the abdomen with image documentation. COMPARISON: No relevant prior studies available. FINDINGS: Liver: Subcentimeter echogenic left hepatic lobe lesion, nonspecific, potentially hemangioma. Liver measures 12.5 cm. Portal vein patent and normally directed. Gallbladder: Cholelithiasis, gallbladder distention, and wall thickening measuring up to 8 mm. Common bile duct: No biliary dilatation. CBD measures 3 mm. Pancreas: Hypoechoic appearance of the pancreas, which can be seen with pancreatitis. IMPRESSION: 1. Cholelithiasis, gallbladder distention, and wall thickening measuring up to 8 mm. Imaging appearance raises the possibility of cholecystitis. Geller sign reported as negative, although status of premedication is unknown. 2. Hypoechoic appearance of the pancreas, which can be seen with pancreatitis. Correlate with serum lipase. Electronically signed by: Hipolito Barkley M.D. 01/07/24 22:13 PM Cholangiopancreatography MRI 01/07/24 19:32 Exam(s): MRI MRCP EXAM: MR Abdomen Without Intravenous Contrast, MRCP Protocol CLINICAL HISTORY: Reason for exam: transaminitis, pancreatitis, gallstones. TECHNIQUE: Multiplanar magnetic resonance images of the abdomen without intravenous contrast using MRCP protocol. COMPARISON: CTA abdomen and pelvis 01/07/24 FINDINGS: Lung bases are clear. There is cholelithiasis, gallbladder distention, gallbladder wall edema. There is no intrahepatic or extrahepatic biliary dilatation. Common bile duct measures 7 mm, normal in caliber for patient age. There is no choledocholithiasis. Liver, spleen, and adrenal glands are unremarkable. There is a benign subcentimeter T2 hyperintense cyst in the left kidney; no follow-up is indicated. Kidneys appear otherwise unremarkable. There is no hydronephrosis. There is edema and fluid along the pancreas without pancreatic duct dilatation or organized peripancreatic collection. IMPRESSION: 1. Peripancreatic edema and fluid suggesting acute pancreatitis. Correlate with serum lipase. 2. Cholelithiasis and gallbladder wall edema, cholecystitis not excluded. 3. No biliary dilatation or choledocholithiasis. Electronically signed by: Hipolito Barkley M.D. 01/07/24 21:31 PM Code Status & VTE Plan Code Status Full code VTE Prophylaxis Plan VTE Prophylaxis will be ordered: Yes PG Care Time/CCT Total # of Minutes Spent Total Time Spent with Patient: Total time spent is greater than 50% in coordination of care (as documented) at patient's floor/unit and/or counseling patient: Coding Level of Care Code 04501 INT INP/OBS CARE 3/75MIN Diagnoses Pancreatitis K85.90 Chronicity: acute Abdominal pain with vomiting R10.9; R11.10 Nausea & vomiting R11.2 Hypertension I10 Diabetes E11.9 Hyperlipemia E78.5 (1) Pancreatitis Chronicity: acute
[2024-01-08] MEDS ORDERED: GLUCAGON FOR INJ 1 MG VIAL SQ PRN (01:17)
[2024-01-08] MEDS ORDERED: DEXTROSE 50% 50 ML SYRINGE IV PRN (01:17)
[2024-01-08] MEDS ORDERED: GLUCOSE 10 TAB/TUBE PO PRN (01:17)
[2024-01-08] MEDS ORDERED: CARBOHYDRATES FOR HYPOGLYCEMIA PO PRN (01:17)
[2024-01-08] MEDS ORDERED: GLUCOSE 40% GEL 15 GM TUBE PO PRN (01:17)
[2024-01-08] MEDS: NSS + 20MEQ KCL 20 MEQ/1,000 ML BAG IV SCH (01:21)
[2024-01-08] MEDS: PIPERACILLIN/TAZOBACTAM 4.5 GM/100 ML BAG IV SCH (04:25)
[2024-01-08] MEDS: HYDROmorphone INJ 0.5 MG/0.5 ML SYR IV PRN ×2 (04:54→11:47)
[2024-01-08] MEDS: ONDANSETRON INJ 2 MG/ML 2 ML VIAL IV STA (04:54)
[2024-01-08] MEDS: INSULIN ASPART PER UNIT CHARGE SC SCH (06:28)
[2024-01-08 07:13] LABS: Hematocrit (blood only) 32.9 % (42.0-52.0); Hemoglobin 11.4 g/dl (14.0-18.0); Mean Corpuscular Hemoglobin 31.5 pg (25.0-34.0); Mean Corpuscular Hgb Conc 34.7 g/dL (32.0-36.0); Mean Corpuscular Volume 90.9 fL (80.0-100.0); Mean Platelet Volume 9.2 fL (9.4-12.4); Platelet Count 220 K/uL (130-400); RDW Coefficient of Variation 11.6 % (11.5-14.5); RDW Standard Deviation 38.8 fL (36.4-46.3); Red Blood Count 3.62 M/uL (4.70-6.10); White Blood Count 12.52 K/ul (4.8-10.8)
[2024-01-08 07:40] LABS: Partial Thromboplastin Ratio 0.9; Partial Thromboplastin Time 25 Seconds (21-31); Prothrombin Time 11.2 Seconds (9.0-12.0)
[2024-01-08 07:42] LABS: Basophils # (auto) 0.02 K/uL (0.00-0.20); Basophils % (auto) 0.2 %; Eosinophils # (auto) 0.01 K/uL (0.00-0.50); Eosinophils % (auto) 0.1 %; Immature Granulocytes # (auto) 0.04 K/uL (0.01-0.20); Immature Granulocytes % (auto) 0.3 %; Lymphocytes # (auto) 0.71 K/uL (1.20-3.40); Lymphocytes % (auto) 5.7 %; Monocytes # (auto) 0.44 K/uL (0.11-0.59); Monocytes % (auto) 3.5 %; Neutrophils % (auto) 90.2 %
[2024-01-08 07:50] LABS: Estimated Average Glucose 134 mg/dl; Hemoglobin A1C 6.3 % (4.5-5.6)
[2024-01-08 07:53] LABS: Albumin Globulin Ratio 1.3 (0.9-2); Albumin Level 3.3 gm/dl (3.4-5.0); BUN Creatinine Ratio 18.5 (10-20); Bilirubin,Total 1.3 mg/dl (0.2-1.0); Calcium 8.3 mg/dl (8.6-10.3); Chol HDL Ratio 3.2 (0-5); Creatinine Clr Calc Pharmacy 56.8 ml/min; Globulin 2.5 gm/dl (2.5-4.0); Magnesium 1.9 mg/dl (1.7-2.4); Potassium 3.8 mmol/L (3.5-5.1); Total Protein 5.8 gm/dl (6.0-8.3)
[2024-01-08] MEDS: PANTOprazole 40 MG/10 ML SYR IV SCH (08:56)
[2024-01-08] MEDS: LACTATED RINGER'S 500 ML IV ONE (08:56)
[2024-01-08] MEDS ORDERED: HYDROmorphone INJ 0.5 MG/0.5 ML SYR IV PRN (09:14)
[2024-01-08] MEDS: LACTATED RINGER'S 1,000 ML IV SCH (09:53)
--- OUTSIDE RECORDS SUMMARY | 2024-01-08 10:47 | External Medical Summary | Continuity of Care Document ---
Author Name Unknown Organization [facility] [address] [facility] [address] [place] [address] [phone] Care Team Providers Care Fall Internship Name Role Phone Brice Montoya Primary Care Physician [phone] Encounter [facility] [id number] Date(s): 11/08/23 - 11/08/23 [facility] [address] [facility] 207 [facility] [address] [address] [place] [phone] Encounter Diagnosis Body mass index [BMI] 22.0-22.9, adult(Discharge Diagnosis) - 11/08/23 Impetigo(Discharge Diagnosis) - 11/08/23 Discharge Disposition: Home or Self Care Attending Physician: DO Montoya Franklin J Allergies, Adverse Reactions, Alerts Substance Criticality Severity Reaction Reaction Severity Status oxybutynin Chest tightness SOB Active Augmentin Allergic diarrhea Ac tive olives dizziness Active mushrooms fainting Active Assessment and Plan Extracted from: Title:Office Visit Note Author:MD Melonie, Nayeli Date:11/08/23 1.Impetigo Acute, uncomplicated illness/injury Goal:Resolution Data: Plan: - Rash for 4-5 days, likely Perioral Impetigo without systemic features. - Recommend: Mupirocin2% LA TID for 7 days - Discontinue hydrocortisone or any Steroid he was using before. - F/U : if worsens/PRN. - Explained danger signs of infection and when to visit us back. - Schedule F/U if no improvement by weekend or worsens with systemic features like fever, new onset fatigue, dizziness, severe headache. Immunizations Given and Recorded Vaccine Date Status Refusal Reason SARS-CoV-2 (COVID-19) mRNA-1273 vaccine 11/09/22 R ecorded influenza virus vaccine, inactivated 9/28/23 Doug rded influenza virus vaccine, inactivated 11/08/21 Give n influenza virus vaccine, inactivated 11/21/18 Doug rded influenza virus vaccine, inactivated 11/08/17 Doug rded SARS-CoV-2 mRNA (Pfizer 12+) bivalent 1 10/30/21 R ecorded zoster vaccine, inactivated 08/05/21 Recorded SARS-CoV-2 (COVID-19) mRNA BNT-162b2 vax 2 07/08/21 Recorded SARS-CoV-2 (COVID-19) mRNA BNT-162b2 vax 07/08/21 Recorded SARS-CoV-2 (COVID-19) mRNA BNT-162b2 vax 04/03/21 Recorded SARS-CoV-2 (COVID-19) mRNA BNT-162b2 vax 11/10/20 Recorded SARS-CoV-2 (COVID-19) mRNA BNT-162b2 vax 03/13/20 Recorded pneumococcal 13-valent vaccine 11/23/14 Recorded varicella virus vaccine 3 09/30/14 Recorded zoster vaccine live 4 09/30/14 Recorded pneumococcal 23-valent vaccine 01/20/12 Recorded tetanus/diphtheria/pertuss, acel (Tdap) 01/30/11 R ecorded 1Result Comment: [facility] pharmacy 2Result Comment: duplicate 3Result Comment: [09/13/2018] Zostavax 4Result Comment: 2018-11-22: Historical information-source unspecified Medications amLODIPine 5 mg oral tablet Start: 05/30/23 4:52:00 PM EDT, 1 tab, PO, Daily, Disp# 90 tab, Refills: 3, Pharmacy: [facility] STORE [id number] Start Date: 05/30/23 Status: Ordered atorvastatin 10 mg oral tablet Start: 09/04/23 7:12:00 PM EDT, See Instructions, Disp# 90 tab, Refills: 3, TAKE 1 TABLET BY MOUTH EVERYDAY AT BEDTIME, Pharmacy: [facility]/pharmacy #[id number] Start Date: 09/04/23 Status: Ordered brimonidine-dorzolamide 0.15%-2% ophthalmic solution Start: 09/13/18 10:24:00 AM EDT, 1 drop left eye BID, Note to Pharmacy: left eye only Start Date: 09/13/18 Status: Ordered ClearLax Start: 06/14/20 10:03:00 AM EDT Start Date: 06/14/20 Status: Ordered dutasteride-tamsulosin 0.5 mg-0.4 mg oral capsule Start: 11/03/22 2:35:00 PM EDT, See Instructions, Disp# 90 cap, Refills: 3, TAKE 1 CAPSULE BY MOUTH EVERY DAY, Pharmacy: [facility] STORE [id number] Start Date: 11/03/22 Status: Ordered ferrous sulfate 325 mg (65 mg elemental iron) oral delayed release tablet Start: 08/11/22 11:39:00 AM EDT, 1 tab, PO, Daily, Disp# 100 tab, Refills: 10, other Start Date: 08/11/22 Status: Ordered Fish Oil 1200 mg oral capsule Start: 09/07/21 9:08:00 AM EDT Start Date: 09/07/21 Status: Ordered hydrochlorothiazide-lisinopril 12.5 mg-20 mg oral tablet Start: 09/03/23 4:23:00 PM EDT, 1 tab, PO, Daily Start Date: 09/03/23 Status: Ordered hydrochlorothiazide-lisinopril 12.5 mg-20 mg oral tablet Start: 09/03/23 4:32:00 PM EDT, 1 tab, PO, Daily, Disp# 90 tab, Refills: 1, TAKE 1 TABLET BY MOUTH EVERY DAY, [id number] Start Date: 09/03/23 Stop Date: 03/01/24 Status: Ordered hydrocortisone valerate 0.2% topical cream See Instructions, Disp# 60 g, Refills: 1, APPLY TO AFFECTED AREA TWICE A DAY, Pharmacy: [facility]/pharmacy #[id number] Start Date: 05/21/23 Status: Ordered metFORMIN 500 mg oral tablet Start: 05/21/23 3:01:00 PM EDT, 1 tab, PO, Daily, Disp# 90 tab, Refills: 3, Pharmacy: [facility] STORE [id number] Start Date: 05/21/23 Status: Ordered mometasone 0.1% topical cream Start: 10/09/22 1:42:00 PM EDT, 1 appl, topical, Daily, Disp# 30 g, Refills: 1, apply a thin film toareas of dry skin, Pharmacy: [facility]/pharmacy #[id number] Start Date: 10/09/22 Status: Ordered mupirocin 2% topical ointment Start: 11/08/23 4:05:00 PM EDT, 1 appl, topical, tid, Disp# 22 g, Refills: 0, Pharmacy: [facility]/pharmacy#[id number] Start Date: 11/08/23 Stop Date: 11/15/23 Status: Ordered Ocusight Capsules Start: 06/14/20 10:03:00 AM EDT, Ocusight Capsules, Daily Start Date: 06/14/20 Status: Ordered Prostate Health Complex Start: 09/13/18 10:25:00 AM EDT, Prostate Health Complex, Daily Start Date: 09/13/18 Status: Ordered Vitamin B12 Start: 08/10/17 8:57:00 AM EDT Start Date: 08/10/17 Status: Ordered Vitamin D3 Start: 06/14/20 10:03:00 AM EDT Start Date: 06/14/20 Status: Ordered Mental Status 11/08/23 Barriers to Learning one year None evide nt Mandatory Health Literacy Documentation Yes Health Literacy Communication Barriers N ever Primary Language Martiniquais Problem List Condition Confirmation Course Effective Dates Status Health St atus Informant Benign essential HTN Confirmed Active Bronchitis Confirmed Active Chronic low back pain Confirmed Active History of syncope Confirmed Active High blood cholesterol Confirmed Active Hyponatremia Confirmed Active IFG (impaired fasting glucose) Confirmed Active Iron deficiency anemia Confirmed Active Melena Confirmed Active Elevated PSA Confirmed Active DM2 (diabetes mellitus, type 2) Confirmed Active Vegetarian diet Confirmed Active Diagnosis Diagnosis Type Effective Dates Health Status Cl inical Service Informant Body mass index [BMI] 22.0-22.9, adult Discharge Diagnosis 11/08/23 Non-Specified Impetigo Discharge Diagnosis 11/08/23 Non-Specified Procedures Procedure Date Related Diagnosis Body Site Status CT angiography of head, neck and thorax with contrast 1 06/19/22 Completed Chest X-ray 2 03/28/22 Completed Bilateral inguinal ultrasound 3 06/02/21 Completed Trabeculectomy 4 03/29/21 Complete d History of hernia repair 2021 Completed Transthoracic three dimensio nal echocardiogram of heart 5 08/02/18 Comple ray Colonoscopy 6 12/13/08 Completed Cataract surgery Complete d Inguinal hernia Completed Tooth extraction Complete d 1Impression CTA of the chest, ABD and pelvis shows no significant abnormality 2Impression: No acute abnormalities and in particular no evidence of pneumonia 3Impression: 1. Probable small fat-containing reducible left inguinal hernia 2. No right inguinal hernia by sonography 4history of right 51. Left ventricular systolic function is normal withan EF of 55-60% 2. The left ventricular wall thickness is normal 3. The right ventricular systolic pressure is normal. There is no pulmonary huypertension 6Two other attempts: Jan, 2012 and Sep, 2014 Abstracted from personal surgery record Vital Signs Most recent to oldest [Reference Range]: 1 Height 164.5 cm (11/08/23 1:41 PM) Patient Weight 60.2 kg (11/08/23 1:41 PM) Body Mass Index 22.25 kg/m2 (11/08/23 1:41 PM) Temperature [36.5-37.9 DegC] 36.5 DegC (11/08/23 1:41 PM) Respiratory Rate 16 br/min (11/08/23 1:41 PM) Blood Pressure 138/72mmHg (11/08/23 1:41 PM) Cuff Pulse Pressure 66 mmHg (11/08/23 1:41 PM) Social History Social History Type Response Smoking Status Never smoked cigaret adi Sex Male Sex Representation Male (finding) FCM Outpt Note * DO Watson Gretchen Elizabeth: MODIFY DO Watson Gretchen Elizabeth: MODIFY, MODIFY DO Watson Gretchen Elizabeth: MODIFY Event Display: FCM Outpt Note Authored Date: [id number] Chief Complaint Rash on face started three days ago. History of Present Illness Patient is a 83 year old Male presenting to the office for Rash in his face. -Onset: 4 days -Palliated by: -Aggravated by: -Radiation:None -Severity: Moderate -ROS: Fever, fatigue, dizziness, weakness -New medications:No - Any previous rash: - Any tick bite/animal bite - Itching: No itchy,NoBurning Previois h/o rash aswell; went awaywith mupirocin:now perisistent Appliedneosporinand vaselinefrom today; does not help -Pertinent PMHx: P/H/O: HTN, Bronchitis, Type 2 DM, High cholesterol, JR Med: Amlodipine 10 mg OD HCTZ+ Lisinopril: 1 tab PO daily Metformin 500tab Po daily Review of Systems As per HPI Physical Exam Vitals & Measurements T:36.5C RR:16 BP:138/72 SpO2:99% HT:164.5cm WT:60.2kg WT:60.200kg(Dosing) BMI:22.25 PHQ2 Data(Data Documented on:11/08/2023 13:37) Emotional health assessment NEGATIVE General: Alert and oriented, No acute distress Cardiovascular: Normal rate, Regular rhythm, No murmur, No gallop. Respiratory: Lungs are clear to auscultation, Respirations are non-labored, Breath sounds are equal Psych: Mood-affect congruence. Reports no SI/HI. Speech is of normal pace and content Rash: Crustedlesion on left side of perioral area along with some pus point Assessment/Plan 1.Impetigo Acute, uncomplicated illness/injury Goal:Resolution Data: Plan: - Rash for 4-5 days, likely Perioral Impetigo without systemic features. - Recommend: Mupirocin2% LA TID for 7 days - Discontinue hydrocortisone or any Steroid he was using before. - F/U : if worsens/PRN. - Explained danger signs of infection and when to visit us back. - Schedule F/U if no improvement by weekend or worsens with systemic features like fever, new onsetfatigue, dizziness, severe headache. Attestation Patient seen and examined in concert with Dr. Wilhelm, agree with history and physical documented above. Photographic documentation under media tab. Trial mupirocin topical. Patient denies prodrome consistent with HSV or VZV. Plan reviewed in detail and patient understanding. Problem List/Past Medical History Ongoing Benign essential HTN Bronchitis Chronic low back pain DM2 (diabetes mellitus, type 2) Elevated PSA High blood cholesterol History of syncope Hyponatremia IFG (impaired fasting glucose) Iron deficiency anemia Melena Vegetarian diet Procedure/Surgical History CT angiography of head, neck and thorax with contrast| Service Date: 06/19/2022hest X-ray| Service Date: 03/28/2022ilateral inguinal ultrasound| Service Date: 06/02/2021Trabeculectomy| Service Date: 03/29/2021History of hernia repair| Service Date: 2021Transthoracic three dimensional echocardiogram of heart| Service Date: 08/02/2018Colonoscopy| Service Date: 12/13/2008Inguinal herniaTooth extractionCataract surgery Medications amLODIPine(amLODIPine 5 mg oral tablet), 1 tab, PO, Daily atorvastatin(atorvastatin 10 mg oral tablet), See Instructions, 3 refills brimonidine-dorzolamide ophthalmic(brimonidine-dorzolamide 0.15%-2% ophthalmic solution) cholecalciferol(Vitamin D3) cyanocobalamin(Vitamin B12) dutasteride-tamsulosin(dutasteride-tamsulosin 0.5 mg-0.4 mg oral capsule), See Instructions ferrous sulfate(ferrous sulfate 325 mg (65 mg elemental iron) oral delayed release tablet), 325 mg=1 tab, PO, Daily, 10 refills hydrochlorothiazide-lisinopril(hydrochlorothiazide-lisinopril 12.5 mg-20 mg oral tablet), 1 tab, PO, Daily hydrochlorothiazide-lisinopril(hydrochlorothiazide-lisinopril 12.5 mg-20 mg oral tablet), 1 tab, PO, Daily, 1 refills hydrocortisone topical(hydrocortisone valerate 0.2% topical cream), See Instructions, 1 refills metFORMIN(metFORMIN 500 mg oral tablet), 1 tab, PO, Daily mometasone topical(mometasone 0.1% topical cream), 1 appl, topical, Daily, 1 refills mupirocin topical(mupirocin 2% topical ointment), 1 appl, topical, tid omega-3 polyunsaturated fatty acids(Fish Oil 1200 mg oral capsule) polyethylene glycol 3350(ClearLax) unknown medication(Ocusight Capsules), Daily unknown medication(Prostate Health Complex), Daily Allergies AugmentinAllergic diarrhea mushroomsfainting olivesdizziness oxybutyninChest tightness, SOB Social History Smoking Status Never smoked cigarettes Employment/School Status:Retired Description:Pharmacology researcher Nutrition/Health Type of diet:Vegetarian Immunizations Vaccine Date Status SARS-CoV-2 (COVID-19) mRNA-1273 vaccine 11/09/2022 Recorded influenza virus vaccine, inactivated 11/09/2022 Recorded influenza virus vaccine, inactivated 11/08/2021 Given SARS-CoV-2 mRNA (Pfizer 12+) bivalent 10/30/2021 Recorded Comments : [facility] zoster vaccine, inactivated 08/05/2021 Recorded SARS-CoV-2 (COVID-19) mRNA BNT-162b2 vax 07/08/2021 Recorded SARS-CoV-2 (COVID-19) mRNA BNT-162b2 vax 04/03/2021 Recorded SARS-CoV-2 (COVID-19) mRNA BNT-162b2 vax 11/10/2020 Recorded SARS-CoV-2 (COVID-19) mRNA BNT-162b2 vax 03/13/2020 Recorded influenza virus vaccine, inactivated 11/21/2018 Recorded influenza virus vaccine, inactivated 11/08/2017 Recorded pneumococcal 13-valent vaccine 11/23/2014 Recorded varicella virus vaccine 09/30/2014 Recorded Comments : [09/13/2018] Zostavax zoster vaccine live 09/30/2014 Recorded Comments : 2018-11-22: Historical information-source unspecified pneumococcal 23-valent vaccine 01/20/2012 Recorded tetanus/diphtheria/pertuss, acel (Tdap) 01/30/2011 Recorded Recommendations Health Maintenance Pending(in the next year) OverDue Medicare Annual Wellness Visit due04/13/23and every 1year Diabetes Management A1c due04/14/23and every 366day Adult Influenza Vaccine due08/12/23and every 1year Due Adult Social Determinants of Health Screening due11/08/23Unknown Frequency Adult Tdap/Td Vaccine due11/08/23Unknown Frequency Diabetic Eye Exam due11/08/23Unknown Frequency Shingles Vaccine due11/08/23One-time only Satisfied(in the past 1 year) Satisfied Adult COVID-19 Vaccination on11/09/22.Satisfied by CHARISMA Sood Bobbi Adult Influenza Vaccine on11/09/22.Satisfied by CHARISMA Sood Bobbi Body Mass Index on11/08/23.Satisfied by CHARISMA Brice Kathryn Electronic Signature on File Electronically Reviewed/Signed by: Nayeli Wilhelm MD Author Signature Dt/Tm:11/08/2023 05:09 PM Resident Department of Family Medicine Electronically Reviewed/Signed by: Molly Romeoigngloria Signature Dt/Tm: 11/09/2023 11:41 AM Department of Family Medicine [place] Patient Care team information Care Team Personnel Name: DO Montoya Franklin J Position: Physician - Family Med Member Role: Primary Care Provider Address: [address] [address] Name: Bhavya Mejia Position: HIS Supervisor_P Member Role: HIS Lifetime Name: Shiraz Knight Position: HIS Supervisor_P Member Role: HIS Lifetime Care Team Related Persons Name: FATOU BAIN"
--- OUTSIDE RECORDS SUMMARY | 2024-01-08 10:47 | External Medical Summary | Continuity of Care Document ---
Author Name Unknown Organization [facility] [address] [place] [address] [phone] Care Team Providers Care Auto Rental Clerk Name Role Phone Brice Montoya Primary Care Physician [phone] Encounter [facility] [id number] Date(s): 11/23/23 - 11/23/23 [facility] 0 [facility] 207 [facility] [address] [address] [phone] Encounter Diagnosis Body mass index [BMI] 22.0-22.9, adult(Discharge Diagnosis) - 11/23/23 HTN (hypertension)(Discharge Diagnosis) - 11/23/23 Anemia(Discharge Diagnosis) - 11/23/23 IFG (impaired fasting glucose)(Discharge Diagnosis) - 11/23/23 Dizziness(Discharge Diagnosis) - 11/23/23 Hyperlipemia(Discharge Diagnosis) - 11/23/23 Discharge Disposition: Home or Self Care Attending Physician: DO Montoya Franklin J Allergies, Adverse Reactions, Alerts Substance Criticality Severity Reaction Reaction Severity Status oxybutynin Chest tightness SOB Active Augmentin Allergic diarrhea Ac tive olives dizziness Active mushrooms fainting Active Assessment and Plan Extracted from: Title:General Exam * Author:DO Montoya Franklin J Date:11/23/23 Impression and Plan Diagnosis IFG (impaired fasting glucose) ([id number] R73.01, Discharge, Medical). Dizziness ([id number] R42, Discharge, Medical). HTN (hypertension) ([id number] I10, Discharge, Medical). Anemia (DHN97-MV D64.9, Discharge, Medical). Plan: HTN Well controlled, although maybe some orthostatic hypotension Change lisinopril hydrochlorothiazide 20/12.5 to lisinopril 20 mg only Check BMP Recheck blood pressure here in 6 weeks Cough Exam reassuring He did have a blood pressure last year, in March, for similar which was reassuring as well Suspect more postnasal drip/sinus related in the setting of a resolving URI If continues, consider chest x-ray at 6-week follow-up I do not think this is an CAPRICE related cough, but if continues, could consider changing to ARB Dizziness Seems to have both element of orthostatic hypotension and vertigo Discontinue hydrochlorothiazide (see above) Nocturia He had been taking the hydrochlorothiazide prior to bed, so eliminating this may help Continue dutasteride/tamsulosin for now; will see what effect feeling the hydrochlorothiazide has Anemia Mild, 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 (stool testing for blood negative previously) He had a CBC in [place] in the interim since I saw him last, and look to have some improvement in his hemoglobin Continue ferrous sulfate daily Check CBC IFG Continue metformin once daily Check BMP and A1c Elevated cholesterol Now taking statin four times per week Check lipid profile in 3 months asteatotic dermatitis Significant excoriation and inflammation I think by combining the mid his own with the pege-tje-voqnupd moisturizer, has really only diluted the steroid strength Triamcinolone 0.1% twice daily; will give him the large jar so that he can continue twice daily for at least 2-4 weeks Recheck here in 6 weeks . Orders [facility]: triamcinolone 0.1% topical cream (Prescribe): 1 appl, topical, bid, 454 g, 1 Refill(s). [facility] Laboratory: Hgb A1C Request (Order): Routine, 11/23/2023 12:33 EDT, Requested Timeframe First Available Lipid Profile Request (Order): Routine, 11/23/2023 12:33 EDT, Requested Timeframe First Available, Fasting CBC w Platelets and Diff Request (Order): Routine, 11/23/2023 12:33 EDT, Requested Timeframe First Available CMP Request (Order): Routine, 11/23/2023 12:33 EDT, Requested Timeframe First Available. Immunizations Given and Recorded Vaccine Date Status Refusal Reason SARS-CoV-2 (COVID-19) mRNA-1273 vaccine 11/09/22 R ecorded influenza virus vaccine, inactivated 11/09/22 Doug rded influenza virus vaccine, inactivated 11/08/21 [...] acel (Tdap) 01/30/11 R ecorded 1Result Comment: [facility] pharmacy 2Result Comment: duplicate 3Result Comment: [09/13/2018] Zostavax 4Result Comment: 2018-11-22: Historical information-source unspecified Medications amLODIPine 5 mg oral tablet Start: 05/30/23 4:52:00 PM EDT, 1 tab, PO, Daily, Disp# 90 tab, Refills: 3, Pharmacy: [id number] Start Date: 05/30/23 Status: Ordered atorvastatin 10 mg oral tablet Start: 09/04/23 7:12:00 PM EDT, See Instructions, Disp# 90 tab, Refills: 3, TAKE 1 TABLET BY MOUTH EVERYDAY AT BEDTIME, Pharmacy: [facility]/pharmacy #[id number] Start Date: 09/04/23 Status: Ordered brimonidine-dorzolamide 0.15%-2% ophthalmic solution Start: 09/13/18 10:24:00 AM EDT, 1 drop left eye BID, Note to Pharmacy: left eye only Start Date: 09/13/18 Status: Ordered dutasteride-tamsulosin 0.5 mg-0.4 mg oral capsule Start: 11/15/23 1:00:00 PM EDT, 1 cap, PO, Daily, Disp# 90 cap, Refills: 1, Pharmacy: [id number] Start Date: 11/15/23 Status: Ordered ferrous sulfate 325 mg (65 mg elemental iron) oral delayed release tablet Start: 08/11/22 11:39:00 AM EDT, 1 tab, PO, Daily, Disp# 100 tab, Refills: 10, other Start Date: 08/11/22 Status: Ordered Fish Oil 1200 mg oral capsule Start: 09/07/21 9:08:00 AM EDT Start Date: 09/07/21 Status: Ordered hydrocortisone valerate 0.2% topical cream See Instructions, Disp# 60 g, Refills: 1, APPLY TO AFFECTED AREA TWICE A DAY, [id number] Start Date: 05/21/23 Status: Ordered lisinopril 20 mg oral tablet Start: 11/23/23 12:10:00 PM EDT, 1 tab, PO, Daily, Disp# 90 tab, Refills: 3, [id number] Start Date: 11/23/23 Stop Date: 11/17/24 Status: Ordered metFORMIN 500 mg oral tablet Start: 05/21/23 3:01:00 PM EDT, 1 tab, PO, Daily, Disp# 90 tab, Refills: 3, Pharmacy: [id number] Start Date: 05/21/23 Status: Ordered mometasone 0.1% topical cream Start: 10/09/22 1:42:00 PM EDT, 1 appl, topical, Daily, Disp# 30 g, Refills: 1, apply a thin film toareas of dry skin, [id number] Start Date: 10/09/22 Status: Ordered mupirocin 2% topical ointment Start: 11/08/23 4:05:00 PM EDT, 1 appl, topical, tid, Disp# 22 g, Refills: 0, Pharmacy: [facility]/pharmacy#[id number] Start Date: 11/08/23 Stop Date: 11/15/23 Status: Ordered saw palmetto Start: 11/23/23 11:15:00 AM EDT Start Date: 11/23/23 Status: Ordered tafluprost 0.0015% ophthalmic solution Start: 11/23/23 11:14:00 AM EDT, left eye Start Date: 11/23/23 Status: Ordered triamcinolone 0.1% topical cream Start: 11/23/23 12:22:00 PM EDT, 1 appl, topical, bid, Disp# 454 g, Refills: 1, Pharmacy: [facility]/pharmacy #[id number] Start Date: 11/23/23 Status: Ordered Triple Action Joint Start: 11/23/23 11:15:00 AM EDT, Triple Action Joint Start Date: 11/23/23 Status: Ordered Vitamin B12 Start: 08/10/17 8:57:00 AM EDT Start Date: 08/10/17 Status: Ordered Vitamin D3 Start: 06/14/20 10:03:00 AM EDT Start Date: 06/14/20 Status: Ordered Mental Status 11/23/23 Barriers to Learning one year None evide nt Communication Barrier Present No Health Literacy Communication Barriers N ever Primary Language Albanian Problem List Condition Confirmation Course Effective Dates [...] Diagnosis Diagnosis Type Effective Dates Health Status Clinical Service Informant Dizziness Discharge Diagnosis 11/23/23 Non-Specified Hyperlipemia Discharge Diagnosis 11/23/23 Non-Specified Body mass index [BMI] 22.0-22.9, adult Discharge Diagnosis 11/23/23 Non-Specified IFG (impaired fasting glucose) Discharge Diagnosis 11/23/23 Non-Specified HTN (hypertension) Discharge Diagnosis 11/23/23 Non-Specified Anemia Discharge Diagnosis 11/23/23 Non-Specified Procedures Procedure Date Related Diagnosis Body [...] recent to oldest [Reference Range]: 1 Height 164 cm (11/23/23 11:18 AM) Patient Weight 60.3 kg (11/23/23 11:18 AM) Body Mass Index 22.42 kg/m2 (11/23/23 11:18 AM) Heart Rate 65 bpm (11/23/23 11:18 AM) Respiratory Rate 18 br/min (11/23/23 11:18 AM) Blood Pressure 120/60mmHg (11/23/23 11:18 AM) BP Location # 1 Right Arm (11/23/23 11:18 AM) Social History Social History Type Response Smoking Status Never smoked cigaret adi Sex Male Sex Representation Male (finding) Outpatient Note * DO Montoya Franklin J: PERFORM, SIGN, VERIFY Event Display: .Outpt Note Authored Date: Patient: ROLO BAIN Age: 83 years Sex: Male : 1940 Associated Diagnoses: None Author: DO Montoya Franklin J Visit Information Visit type: Scheduled follow-up. Chief Complaint 11/23/2023 11:17 EDT AWV. Ongoing cough and skin itchy. Memory. History of Present Illness Here today for a annual wellness visit, although he has several chronic and acute issues which werereviewed instead. Cough and subsequent sore throat for about six weeks; started with a cough which he thought was allergic. Had some rhinorrhea initially, but that resolved. Using OTC saline nasal spray which seems zach helping. Also using OTC cough drop. Cough seems to be intermittently consistent thru the day, and at night. He continues with a pruritic rash. He has seen dermatology previously and was prescribed mometasone0.1% cream to be applied daily. However, given the area of skin involved, he has been mixing the mometasone with fitp-ely-pyhqxys moisturizers to try and make the tube of cream last more than a couple days. It sounds as if this was worse last winter when he saw dermatology; may have had some improvement over the summer, but never complete resolution. Some trouble with memory - people's names; no lost objects. No problems with ADLs/executive functioning. He still notes some dizziness both with positional changes and with changes of his head. For example, he noted some dizziness when arising from the exam chair to get to the table. He also describes adizzy sensation when walking but looking around (as if he is walking on the sidewalk and looking passing objects, etc.). He does note rather frequent nocturia, about 3-4 times a night. This has been fairly consistent. Heis on a combination of dutasteride and tamsulosin 0.5/0.4. Review of Systems Constitutional: Negative. Respiratory: Cough. Cardiovascular: Negative. Gastrointestinal: Negative. Neurologic: Alert and oriented X4. Health Status Allergies: Allergic Reactions (Selected) Severity Not Documented Augmentin- Allergic diarrhea. Mushrooms- Fainting. Olives- Dizziness. Oxybutynin- Sob and chest tightness.. Current medications: (Selected) Prescriptions Prescribed amLODIPine 5 mg oral tablet: 1 tab, PO, Daily, 90 tab, 3 Refill(s) atorvastatin 10 mg oral tablet: See Instructions, TAKE 1 TABLET BY MOUTH EVERYDAY AT BEDTIME, 90 tab, 3 Refill(s) dutasteride-tamsulosin 0.5 mg-0.4 mg oral capsule: 1 cap, PO, Daily, 90 cap, 1 Refill(s) ferrous sulfate 325 mg (65 mg elemental iron) oral delayed release tablet: 1 tab, PO, Daily, 100 tab, 10 Refill(s) hydrochlorothiazide-lisinopril 12.5 mg-20 mg oral tablet: 1 tab, PO, Daily, for 90 day, TAKE 1 TABLET BY MOUTH EVERY DAY, 90 tab, 1 Refill(s) hydrocortisone valerate 0.2% topical cream: See Instructions, APPLY TO AFFECTED AREA TWICE A DAY, 60 g, 1 Refill(s) metFORMIN 500 mg oral tablet: 1 tab, PO, Daily, 90 tab, 3 Refill(s) mometasone 0.1% topical cream: 1 appl, topical, Daily, apply a thin film to areas of dry skin, 30 g, 1 Refill(s) mupirocin 2% topical ointment: 1 appl, topical, tid, for 7 day, 22 g, 0 Refill(s) Documented Medications Documented Fish Oil 1200 mg oral capsule: Triple Action Joint: Vitamin B12: Vitamin D3: brimonidine-dorzolamide 0.15%-2% ophthalmic solution: 1 drop left eye BID saw palmetto: tafluprost 0.0015% ophthalmic solution: left eye. Problem list: Medical Benign essential HTN / SNOMED CT 9448364 / Confirmed Bronchitis / SNOMED CT 39576185 / Confirmed Chronic low back pain / SNOMED CT 059587820 / Confirmed DM2 (diabetes mellitus, type 2) / SNOMED CT 126778756 / Confirmed Elevated PSA / SNOMED CT 0039576805 / Confirmed High blood cholesterol / SNOMED CT 06689119 / Confirmed History of syncope / SNOMED CT 1797701424 / Confirmed Hyponatremia / SNOMED CT 673152803 / Confirmed IFG (impaired fasting glucose) / SNOMED CT 1209151949 / Confirmed Iron deficiency anemia / SNOMED CT 951801964 / Confirmed Melena / SNOMED CT 2063198 / Confirmed Vegetarian diet / SNOMED CT 414968357 / Confirmed All Problems Benign essential HTN / SNOMED CT 7664829 / Confirmed Bronchitis / SNOMED CT 02412265 / Confirmed Chronic low back pain / SNOMED CT 571358645 / Confirmed DM2 (diabetes mellitus, type 2) / SNOMED CT 784056741 / Confirmed Elevated PSA / SNOMED CT 8045437996 / Confirmed High blood cholesterol / SNOMED CT 25330687 / Confirmed History of syncope / SNOMED CT 6223555101 / Confirmed Hyponatremia / SNOMED CT 391440178 / Confirmed IFG (impaired fasting glucose) / SNOMED CT 8547168324 / Confirmed Iron deficiency anemia / SNOMED CT 767165153 / Confirmed Melena / SNOMED CT 4390866 / Confirmed Vegetarian diet / SNOMED CT 424119968 / Confirmed. Histories Family History: No family history items have been selected or recorded.. 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 Physical Examination Vital Signs 11/23/2023 11:18 EDT Heart Rate 65 bpm Respiratory Rate 18 br/min Systolic Blood Pressure 120 mmHg Diastolic Blood Pressure 60 mmHg BP Location # 1 Right Arm SpO2 98 % Measurements from flowsheet : Measurements 11/23/2023 11:36 EDT Osteoporosis Screening Tool -4.74 11/23/2023 11:18 EDT Height 164 cm Height Method Standing Patient Weight 60.3 kg Weight 60.300 kg Weight Method Standing Scale Body Mass Index 22.42 kg/m2 [place] Body Weight 60.5 kg Height/Weight Refused Height/Weight Taken General: Alert and oriented. Eye: Pupils are equal, round and reactive to light, Extraocular movements are intact, Normal conjunctiva. HENT: Normocephalic, Normal hearing. Neck: Supple, Non-tender. Respiratory: Lungs are clear to auscultation, Respirations are non-labored. Cardiovascular: Normal rate, Regular rhythm. Musculoskeletal Normal range of motion. Integumentary: Warm, Dry, [place], Excoriated/eczematous appearing rash on the bilateral lateral upper arms, lateral lumbar areas to posterior belt line. Neurologic: Alert, Oriented, Normal sensory. Psychiatric: Cooperative, Appropriate mood & affect. Health Maintenance Health Maintenance Pending (in the next year) OverDue Medicare Annual Wellness Visit due 04/13/23 and every 1 year Diabetes Management A1c due 04/14/23 and every 366 day Adult Influenza Vaccine due 08/12/23 and every 1 year Due Adult Social Determinants of Health Screening due 11/23/23 Unknown Frequency Adult Tdap/Td Vaccine due 11/23/23 Unknown Frequency Diabetic Eye Exam due 11/23/23 Unknown Frequency Shingles Vaccine due 11/23/23 One-time only Satisfied (in the past 1 year) Satisfied Body Mass Index on 11/23/23. Satisfied by CHARISMA Dailey Vanessa T Impression and Plan Diagnosis IFG (impaired fasting glucose) (LGR22-KO R73.01, Discharge, Medical). Dizziness (GWP61-YE R42, Discharge, Medical). HTN (hypertension) (XIJ40-[id number] I10, Discharge, Medical). Anemia (DKK74-UJ D64.9, Discharge, Medical). Plan: HTN Well controlled, although maybe some orthostatic hypotension Change lisinoprilhydrochlorothiazide 31/01.5 to lisinopril 20 mg only Check BMP Recheck blood pressure here in 6 weeks Cough Exam reassuring He did have a blood pressure last year, in March, for similar which was reassuring as well Suspect more postnasal drip/sinus related in the setting of a resolving URI If continues, consider chest x-ray at 6-week follow-up I do not think this is an CAPRICE related cough, but if continues, could consider changing to ARB Dizziness Seems to have both element of orthostatic hypotension and vertigo Discontinue hydrochlorothiazide (see above) Nocturia He had been taking the hydrochlorothiazide prior to bed, so eliminating this may help Continue dutasteride/tamsulosin for now; will see what effect feeling the hydrochlorothiazide has Anemia Mild, 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 (stool testing for blood negative previously) He had a CBC in [place] in the interim since I saw him last, and look to have some improvement in his hemoglobin Continue ferrous sulfate daily Check CBC IFG Continue metformin once daily Check BMP and A1c Elevated cholesterol Now taking statin four times per week Check lipid profile in 3 months asteatotic dermatitis Significant excoriation and inflammation I think by combining the mid his own with the ovfu-apb-htvvxho moisturizer, has really only dilutedthe steroid strength Triamcinolone 0.1% twice daily; will give him the large jar so that he can continue twice daily forat least 2-4 weeks Recheck here in 6 weeks . Orders [facility]: triamcinolone 0.1% topical cream (Prescribe): 1 appl, topical, bid, 454 g, 1 Refill(s). [facility] Laboratory: Hgb A1C Request (Order): Routine, 11/23/2023 12:33 EDT, Requested Timeframe First Available Lipid Profile Request (Order): Routine, 11/23/2023 12:33 EDT, Requested Timeframe First Available, Fasting CBC w Platelets and Diff Request (Order): Routine, 11/23/2023 12:33 EDT, Requested Timeframe First Available CMP Request (Order): Routine, 11/23/2023 12:33 EDT, Requested Timeframe First Available. Professional Services Qtlb-wz-akvz: 40 minutes Documentation and orders: 10 minutes Electronic Signature on File Electronically Reviewed/Signed by: Brice Montoya DO Author Signature Dt/Tm:11/23/2023 12:40 PM Department of Family Medicine [facility] Patient Care team information Care Team Personnel Name: DO Montoya Franklin J Position: Physician - Family Med Member Role: Primary Care Provider Address: [address] Name: Bhavya Mejia Position: HIS Supervisor_P Member Role: HIS Lifetime Name: Shiraz Knight Position: HIS Supervisor_P Member Role: HIS Lifetime Care Team Related Persons Name: FATOU BAIN
--- OUTSIDE RECORDS SUMMARY | 2024-01-08 10:47 | External Medical Summary | Continuity of Care Document ---
Author Name Unknown Organization [facility] [address] Address [address] [place], [place] [id number] Care Team Providers Care Library Page Name Role Phone Brice Montoya Primary Care Physician [phone] Encounter [facility] FINN[facility] [id number] Date(s): 11/26/23 - 11/26/23 [facility] [address] [facility] [address] [facility] [facility] [place], [place] [phone] Encounter Diagnosis Essential (primary) hypertension(Final) - Anemia, unspecified(Final) - Impaired fasting glucose(Final) - Hyperlipidemia, unspecified(Final) - Discharge Disposition: Home or Self Care Attending Physician: DO Montoya Franklin J Referring Physician: DO Montoya Franklin J Allergies, Adverse Reactions, Alerts Substance Criticality Severity Reaction Reaction Severity Status oxybutynin Chest tightness SOB Active Augmentin Allergic diarrhea Ac tive olives dizziness Active mushrooms fainting Active Immunizations Given and Recorded Vaccine Date Status [...] acel (Tdap) 01/30/11 R ecorded 1Result Comment: [facility] pharmacy 2Result Comment: duplicate 3Result Comment: [09/13/2018] Zostavax 4Result Comment: 2018-11-22: Historical information-source unspecified Medications amLODIPine 5 mg oral tablet Start: 05/30/23 4:52:00 PM EDT, 1 tab, PO, Daily, Disp# 90 tab, Refills: 3, Pharmacy: [facility] [id number] Start Date: 05/30/23 Status: Ordered atorvastatin 10 mg oral tablet Start: 09/04/23 7:12:00 PM EDT, See Instructions, Disp# 90 tab, Refills: 3, TAKE 1 TABLET BY MOUTH EVERYDAY AT BEDTIME, Pharmacy: [facility]/pharmacy #[id number] Start Date: 09/04/23 Status: Ordered brimonidine-dorzolamide 0.15%-2% ophthalmic solution Start: 09/13/18 10:24:00 AM EDT, 1 drop left eye BID, Note to Pharmacy: left eye only Start Date: 09/13/18 Status: Ordered dutasteride-tamsulosin 0.5 mg-0.4 mg oral capsule Start: 11/15/23 1:00:00 PM EDT, 1 cap, PO, Daily, Disp# 90 cap, Refills: 1, Pharmacy: [facility] [id number] Start Date: 11/15/23 Status: Ordered ferrous sulfate [...] TO AFFECTED AREA TWICE A DAY, [id number] Start Date: 05/21/23 Status: Ordered lisinopril 20 mg oral tablet Start: 11/23/23 12:10:00 PM EDT, 1 tab, PO, Daily, Disp# 90 tab, Refills: 3, [id number] Start Date: 11/23/23 Stop Date: 11/17/24 Status: Ordered metFORMIN 500 mg oral tablet Start: 05/21/23 3:01:00 PM EDT, 1 tab, PO, Daily, Disp# 90 tab, Refills: 3, Pharmacy: [facility] STORE [id number] Start Date: 05/21/23 Status: Ordered mometasone 0.1% topical cream Start: 10/09/22 1:42:00 PM EDT, 1 appl, topical, Daily, Disp# 30 g, Refills: 1, apply a thin film toareas of dry skin, [id number] Start Date: 10/09/22 Status: Ordered mupirocin 2% topical ointment Start: 11/08/23 4:05:00 PM EDT, 1 appl, topical, tid, Disp# 22 g, Refills: 0, [id number] Start Date: 11/08/23 Stop Date: 11/15/23 Status: Ordered saw palmetto Start: 11/23/23 11:15:00 AM EDT Start Date: 11/23/23 Status: Ordered tafluprost 0.0015% ophthalmic solution Start: 11/23/23 11:14:00 AM EDT, left eye Start Date: 11/23/23 Status: Ordered triamcinolone 0.1% topical cream Start: 11/23/23 12:22:00 PM EDT, 1 appl, topical, bid, Disp# 454 g, Refills: 1, [id number] Start Date: 11/23/23 Status: Ordered Triple Action Joint Start: 11/23/23 11:15:00 AM EDT, Triple Action Joint Start Date: 11/23/23 Status: Ordered Vitamin B12 Start: 08/10/17 8:57:00 AM EDT Start Date: 08/10/17 Status: Ordered Vitamin D3 Start: 06/14/20 10:03:00 AM EDT Start Date: 06/14/20 Status: Ordered Problem List Condition Confirmation Course Effective Dates [...] 2) Confirmed Active Vegetarian diet Confirmed Active Procedures Procedure Date Related Diagnosis Body Site [...] Sep, 2014 Abstracted from personal surgery record Results Laboratory List Name Date Complete Blood Count w Differential (CBC ,DIFFH) 11/26/23 Comprehensive Metabolic Panel (COMP META B PANEL) 11/26/23 Hemoglobin A1C (HEMOGLOBIN, A1C) 4 Lipid Profile (LIPOPROTEINS) 11/26/23 Most recent to oldest [Reference Range]: 1 eGFR CKD-EPI [>60 mL/min/1.73 m2] >90 mL /min/1.73 m2 1 (11/26/23 8:01 AM) Estimated Average Glucose 126 mg/dL 2 (11/26/23 8:01 AM) Non-HDL 87 mg/dL 3 (11/26/23 8:01 AM) Estimated CrCl 72.15 mL/min (11/26/23 8:43 AM) MPV [9.0-12.2 fL] 9.8 fL (11/26/23 8: AM) Immature Gran% 0.8 % (11/26/23 8 AM) Neut% 53.5 % (11/26/23 AM) Lymph% 24.5 % (11/26/23 8 AM) [place]% 10.6 % (11/26/23 8 AM) Baso% 0.8 % (11/26/23 AM) Eos% 9.8 % (11/26/23 8: AM) Immat Gran, Abs [0-0.4 K/uL] 0.04 K/uL (11/26/23 8 AM) Neut, Abs [2.0-7.7 K/uL] 2.58 K/uL (11/26/23 8: AM) Lymph, Abs [1.0-3.4 K/uL] 1.18 K/uL (11/26/23 AM) [place], Abs [0-1.0 K/uL] 0.51 K/uL (11/26/23 8: AM) Baso, Abs [0-0.1 K/uL] 0.04 K/uL (11/26/23 8: AM) Eos, Abs [0-0.5 K/uL] 0.47 K/uL (11/26/23 8: AM) Type of Diff: AUTO *Unknown* (11/26/23) RDW [11.5-14.2 %] 12.2 % (11/26/23 AM) Anion Gap [5-14 mmol/L] 2 mmol/L *LOW* (11/26/23 AM) Alb [3.5-5.0 g/dL] 4.0 g/dL (11/26/23 AM) Alk Phos [38-126 unit/L] 58 unit/L (11/26/23 AM) ALT [<50 unit/L] 18 unit/L (11/26/23 AM) AST [15-46 unit/L] 27 unit/L (11/26/23 AM) BUN [7-20 mg/dL] 11 mg/dL (11/26/23 AM) Ca [8.4-10.2 mg/dL] 9.3 mg/dL (11/26/23 AM) Chol/HDL 3 (11/26/23 AM) Chol [125-200 mg/dL] 133 mg/dL (11/26/23 AM) Cl- [96-107 mmol/L] 103 mmol/L (11/26/23 AM) HCO3 [22-30 mmol/L] 28 mmol/L (11/26/23 AM) Cret [0.70-1.30 mg/dL] 0.65 mg/dL *LOW* (11/26/23) HbA1c [4.0-6.0 %] 6.0 % (11/26/23 AM) Glu [74-106 mg/dL] 128 mg/dL *HI* (11/26/23) Hct [39-48 %] 38.0 % *LOW* (11/26/23 AM) HDL [>35 mg/dL] 46 mg/dL (11/26/23 AM) Hgb [13.0-17.0 g/dL] 12.5 g/dL *LOW* (11/26/23 AM) K [3.5-5.1 mmol/L] 4.6 mmol/L (11/26/23 AM) LDL Chol, Calculated [50-130 mg/dL] 71 m g/dL (11/26/23 AM) MCH [28-33 pg] 31.3 pg (11/26/23 AM) MCHC [32-36 g/dL] 32.9 g/dL (11/26/23 AM) MCV [81-96 fL] 95.2 fL (11/26/23 AM) Na [137-145 mmol/L] 133 mmol/L *LOW* (11/26/23 AM) Plts [150-350 K/uL] 248 K/uL (11/26/23 AM) RBC [4.40-5.60 M/uL] 3.99 M/uL *LOW* (11/26/23 8:01 AM) T Bili [0.2-1.3 mg/dL] 1.1 mg/dL (11/26/23 8:01 AM) Prot [6.3-8.2 g/dL] 7.0 g/dL (11/26/23 8:01 AM) TG [<200 mg/dL] 82 mg/dL (11/26/23 8:01 AM) WBC [4.0-10.4 K/uL] 4.82 K/uL (11/26/23 8:01 AM) 1Result Comment: Testing Performed By: Dept of Pathology [facility], [address] [place] [address] 2Result Comment: Testing Performed By: Dept of Pathology [facility], [address] [place] [address], [place] [address] 3Result Comment: Testing Performed By: Dept of Pathology [facility], [address] [place] [address], [place] [address] Social History Social History Type Response Smoking Status Never smoked cigaret adi Sex Male Sex Representation Male (finding) Patient Care team information Care Team Personnel Name: DO Montoya Franklin J Position: Physician - Family Med Member Role: Primary Care Provider Address: [facility] [address] [address] [place] Name: Bhavya Mejia Position: HIS Supervisor_P Member Role: HIS Lifetime Name: Shiraz Knight Position: HIS Supervisor_P Member Role: HIS Lifetime Care Team Related Persons Name: FATOU BAIN
--- NOTE | 2024-01-08 11:49 | Hospitalist Progress Note ---
Date of Service January 08, 2024 Assessment & Plan (1) Pancreatitis: (2) Abdominal pain with vomiting: (3) Nausea & vomiting: (4) Hypertension: (5) Diabetes: (6) Hyperlipemia: Plan #Acute pancreatitis #Acute cholecystitis CT angiography/pelvis with innumerable gallstones identified within the gallbladder lumen, with suggestion to order right upper quadrant ultrasound. CT angiography chest was negative for aortic dissection Liver ultrasound showed cholelithiasis, gallbladder distention and wall thickening measuring up to 8 mm. Imaging appearance raises the possibility of cholecystitis , but Geller sign was negative. Hypoechoic appearance of the pancreas could be seen with pancreatitis MRCP showed peripancreatic edema and fluid suggesting acute pancreatitis. Cholelithiasis and gallbladder wall edema, with cholecystitis not excluded Lipase is gone from 7381 to 3157 Total bili is elevated to 1.1 and white count has gone up Dilaudid 0.25 mg IV every 3 hours as needed for mild to moderate pain Dilaudid 0.5 mg IV every 3 hours as needed for severe pain Zofran 4 mg IV every 6 hours as needed Zosyn 4.5 g IV every 8 hours LR bolus x 500 mL now and then continue LR at 150 mL/h and reevaluate in a.m. Discussed with Dr. Brice at bedside: As per surgery, continue IV antibiotics, IV fluids and antiemetics and analgesia for now and they will follow along as patient will need cholecystectomy: Timing to be decided by surgery team If total bili continues to rise, patient will likely need a GI consult for ERCP #Essential hypertension Hold amlodipine, lisinopril/HCTZ while patient is n.p.o. Hydralazine 10 mg IV every 4 hours as needed for systolic blood pressure greater than 160 #Type 2 diabetes mellitus A1c 6.3 Hold metformin Placed on Accu-Cheks with NovoLog SSI #BPH Hold dutasteride and tamsulosin while patient is n.p.o. Follow urine output CODE STATUS: Full code DVT prophylaxis: Bilateral SCDs, start heparin subcutaneous twice daily Care plan discussed with patient, nursing staff and daughter updated at bedside Admission and Anticipated Discharge Date Admission Date: January 07, 2024 Subjective Patient seen and examined H&P reviewed Labs reviewed Radiology reviewed Daughter Shantal at bedside Surgeon Dr. Brice was in the room during my visit Patient states analgesia has helped him with pain but still has some pain with some nausea. He denies any vomiting at present. Denies any fever or chills Physical Exam Physical Exam: General: No acute distress Psych: Awake and alert HEENT: Anicteric sclera, moist oral mucosa CVS: Regular rate and rhythm Lungs: Bilateral air entry, no wheezing noted Abdomen: Soft, epigastric and right upper quadrant tenderness to palpation, no rebound, no guarding Ext: No lower extremity edema, no calf tenderness Neuro: No focal motor deficits noted Results & Data Results & Data Vital Signs (Past 12 Hours) Vital Signs Temp Pulse Pulse Pulse Resp BP Pulse Ox 01/08/24 11:39 36.8 C 74 18 146/65 H 92 01/08/24 08:13 36.7 C 67 20 123/60 95 01/08/24 07:00 75 01/08/24 04:00 37 C 77 16 156/67 H 95 01/08/24 01:00 01/08/24 01:00 37.2 C 89 18 159/69 H 94 01/08/24 00:56 89 O2 Del Method 01/08/24 11:39 Room Air 01/08/24 08:13 Room Air 01/08/24 07:00 01/08/24 04:00 Room Air 01/08/24 01:00 Room Air 01/08/24 01:00 Room Air 01/08/24 00:56 Laboratory Results Laboratory Results - last 24 hr 01/07/24 01/07/24 01/07/24 17:36 17:51 17:53 WBC 5.79 RBC 4.38 L Hgb 13.7 L POC Hgb 13.6 L Hct 40.2 L POC Hct 40 L MCV 91.8 MCH 31.3 MCHC 34.1 RDW Std Deviation 39.3 RDW Coeff of Selina 11.6 Plt Count 264 MPV 9.1 L Immature Gran % (Auto) 0.3 Neut % (Auto) 54.2 Lymph % (Auto) 30.1 [place] % (Auto) 9.0 Eos % (Auto) 5.9 Baso % (Auto) 0.5 Neut # (Auto) 3.14 Lymph # (Auto) 1.74 [place] # (Auto) 0.52 Eos # (Auto) 0.34 Baso # (Auto) 0.03 Immature Gran # (Auto) 0.02 PT 10.9 INR 1.0 APTT 25 PTT Ratio 0.9 POC Sodium 136 Sodium 136 POC Potassium 3.9 Potassium 4.0 POC Chloride 98 L Chloride 99 Carbon Dioxide 31 POC Total CO2 25 Anion Gap 6 POC Anion Gap 17.0 POC BUN 13 BUN 15 Creatinine 0.75 POC Creatinine 0.7 Est Cr Clr Drug Dosing 61.4 eGFR 88.98 BUN/Creatinine Ratio 20.0 Glucose 131 H POC Glucose 139 H POC Glucose (other) 125 H Estimat Average Glucose Hemoglobin A1c Calcium 10.0 POC Ioniz Calcium Yosef 1.23 Magnesium Total Bilirubin 0.9 AST 98 H ALT 50 Alkaline Phosphatase 79 Troponin I High Sens 6.0 Total Protein 7.5 Albumin 4.5 Globulin 3.0 Albumin/Globulin Ratio 1.5 Triglycerides Cholesterol LDL Cholesterol, Calc VLDL Cholesterol, Calc HDL Cholesterol Cholesterol/HDL Ratio Lipase 7381 H 01/08/24 01/08/24 06:17 06:53 WBC 12.52 H RBC 3.62 L Hgb 11.4 L POC Hgb Hct 32.9 L POC Hct MCV 90.9 MCH 31.5 MCHC 34.7 RDW Std Deviation 38.8 RDW Coeff of Selina 11.6 Plt Count 220 MPV 9.2 L Immature Gran % (Auto) 0.3 Neut % (Auto) 90.2 Lymph % (Auto) 5.7 [place] % (Auto) 3.5 Eos % (Auto) 0.1 Baso % (Auto) 0.2 Neut # (Auto) 11.30 H Lymph # (Auto) 0.71 L [place] # (Auto) 0.44 Eos # (Auto) 0.01 Baso # (Auto) 0.02 Immature Gran # (Auto) 0.04 PT 11.2 INR 1.0 APTT 25 PTT Ratio 0.9 POC Sodium Sodium 141 POC Potassium Potassium 3.8 POC Chloride Chloride 108 H Carbon Dioxide 27 POC Total CO2 Anion Gap 6 POC Anion Gap POC BUN BUN 15 Creatinine 0.81 POC Creatinine Est Cr Clr Drug Dosing 56.8 eGFR 86.94 BUN/Creatinine Ratio 18.5 Glucose 160 H POC Glucose 168 H POC Glucose (other) Estimat Average Glucose 134 Hemoglobin A1c 6.3 H Calcium 8.3 L POC Ioniz Calcium Yosef Magnesium 1.9 Total Bilirubin 1.3 H AST 80 H ALT 93 H Alkaline Phosphatase 73 Troponin I High Sens Total Protein 5.8 L D Albumin 3.3 L Globulin 2.5 Albumin/Globulin Ratio 1.3 Triglycerides 39 Cholesterol 112 LDL Cholesterol, Calc 69 VLDL Cholesterol, Calc 8 HDL Cholesterol 35 Cholesterol/HDL Ratio 3.2 Lipase 3157 H Diagnostic Findings Chest X-Ray 01/07/24 17:34 EXAM: X-ray chest one-view portable CLINICAL HISTORY: Chest pain PRIORS: None TECHNIQUE: Upright portable AP chest frontal FINDINGS: Patient is rotated. Lung volumes are diminished. Mediastinum may be widened on the basis of patient rotation. Moderate atherosclerotic disease of the aorta within the [id number]. No pleural effusion. Possible subtle opacification in the right lung base. Heart size is normal. No pneumothorax. Trachea is patent. Osseous structures demonstrate no acute abnormality. No radiopaque foreign body. IMPRESSION: The possibility of streaky opacity in the right lower lobe is raised, allowing for patient rotation. Finding could suggest pneumonia in the proper clinical setting. Please correlate clinically. ACT 112: Positive. There are findings on this examination that require communication between the performing entity and the patient following Patient Test Result Information Act ([place] ACT 112) guidelines. Electronically signed by Marva Sultana 01-07-2024 6:09 PM Abdomen/Pelvis CTA 01/07/24 17:43 EXAMINATION: CT angio abdomen pelvis with con CLINICAL HISTORY: Epigastric pain, dyspnea PRIORS: None TECHNIQUE: Contiguous CTA axial images were obtained through the abdomen and pelvis with the use of intravenous contrast. Sagittal and coronal reformations are supplied. FINDINGS: The abdominal aorta is normal in caliber with moderate atherosclerotic disease. No intimal flap, surrounding inflammatory change or extravasation. No aneurysmal dilatation. No retroperitoneal hemorrhage. Allowing for arterial phase, the gallbladder contains innumerable layering gallstones. The liver, pancreas, spleen, stomach, adrenals, kidneys are morphologically unremarkable. Appendix is normal in the right lower quadrant. Urinary bladder shows circumferential wall thickening with moderate enlargement of the prostate. A moderate to large amount of formed stool present in the colon. No pericolonic inflammatory change. No free fluid in the pelvis. No hemoperitoneum. In bone windows, moderate osseous demineralization noted. Degenerative change of the lumbosacral spine. IMPRESSION: 1. No CTA evidence of an abdominal aorta dissection or aneurysmal dilatation. 2. Innumerable gallstones identified within the gallbladder lumen. Right upper quadrant ultrasound could be considered given the history of epigastric pain. Electronically signed by Marva Sultana 01-07-2024 6:49 PM Chest CTA 01/07/24 17:43 EXAMINATION: CT angio chest dissection without/with contrast CLINICAL HISTORY: Epigastric pain, dyspnea PRIORS: Chest x-ray 01/07/2024 TECHNIQUE: Contiguous axial images were obtained through the chest with the use of intravenous contrast. Sagittal and coronal reformations are supplied. FINDINGS: Noncontrast enhanced images show advanced atherosclerotic disease of the thoracic aorta. No fluid in the mediastinum or surrounding inflammatory change. No pneumomediastinum. Contrast-enhanced images show the ascending aorta measures 3.6 x 3.4 cm, allowing for the absence of gating with no intimal flap or extravasation identified. The descending thoracic aorta demonstrates advanced atherosclerotic disease with no dissection or hemodynamically significant stenosis. Heart size is enlarged. No central pulmonary embolism is identified. No pleural or pericardial effusion. Liquid within the distal portion of the esophagus within the [id number]. No adenopathy in the chest. In lung windows, chest is well-expanded. No dominant mass or airspace consolidation. No pneumothorax. No displaced rib fracture. Moderate osseous demineralization and degenerative change throughout the thoracic spine. IMPRESSION: 1. No CTA evidence of a thoracic aorta dissection. 2. Ascending aorta measures approximately 3.6 cm with moderate atherosclerotic disease. 3. No acute cardiopulmonary process. Electronically signed by Marva Sultana 01-07-2024 6:49 PM Liver Ultrasound 01/07/24 19:30 Exam(s): US LIVER EXAM: US Abdomen Limited CLINICAL HISTORY: Reason for exam: pain, pancreatitis, stones?. TECHNIQUE: Real-time ultrasound of the abdomen with image documentation. COMPARISON: No relevant prior studies available. FINDINGS: Liver: Subcentimeter echogenic left hepatic lobe lesion, nonspecific, potentially hemangioma. Liver measures 12.5 cm. Portal vein patent and normally directed. Gallbladder: Cholelithiasis, gallbladder distention, and wall thickening measuring up to 8 mm. Common bile duct: No biliary dilatation. CBD measures 3 mm. Pancreas: Hypoechoic appearance of the pancreas, which can be seen with pancreatitis. IMPRESSION: 1. Cholelithiasis, gallbladder distention, and wall thickening measuring up to 8 mm. Imaging appearance raises the possibility of cholecystitis. Geller sign reported as negative, although status of premedication is unknown. 2. Hypoechoic appearance of the pancreas, which can be seen with pancreatitis. Correlate with serum lipase. Electronically signed by: Hipolito Barkley M.D. 01/07/24 22:13 PM Cholangiopancreatography MRI 01/07/24 19:32 Exam(s): MRI MRCP EXAM: MR Abdomen Without Intravenous Contrast, MRCP Protocol CLINICAL HISTORY: Reason for exam: transaminitis, pancreatitis, gallstones. TECHNIQUE: Multiplanar magnetic resonance images of the abdomen without intravenous contrast using MRCP protocol. COMPARISON: CTA abdomen and pelvis 01/07/24 FINDINGS: Lung bases are clear. There is cholelithiasis, gallbladder distention, gallbladder wall edema. There is no intrahepatic or extrahepatic biliary dilatation. Common bile duct measures 7 mm, normal in caliber for patient age. There is no choledocholithiasis. Liver, spleen, and adrenal glands are unremarkable. There is a benign subcentimeter T2 hyperintense cyst in the left kidney; no follow-up is indicated. Kidneys appear otherwise unremarkable. There is no hydronephrosis. There is edema and fluid along the pancreas without pancreatic duct dilatation or organized peripancreatic collection. IMPRESSION: 1. Peripancreatic edema and fluid suggesting acute pancreatitis. Correlate with serum lipase. 2. Cholelithiasis and gallbladder wall edema, cholecystitis not excluded. 3. No biliary dilatation or choledocholithiasis. Electronically signed by: Hipolito Barkley M.D. 01/07/24 21:31 PM PG Care Time/CCT Total # of Minutes Spent Total Time Spent with Patient: Total time spent is greater than 50% in coordination of care (as documented) at patient's floor/unit and/or counseling patient: Coding Level of Care Code None Diagnoses Pancreatitis K85.90 Chronicity: acute Abdominal pain with vomiting R10.9; R11.10 Nausea & vomiting R11.2 Hypertension I10 Diabetes E11.9 Hyperlipemia E78.5 (1) Pancreatitis Chronicity: acute
--- NOTE | 2024-01-08 12:37 | Surgery Consultation ---
Date of Consultation January 08, 2024 Assessment & Plan (1) Abdominal pain with vomiting: (2) Pancreatitis: (3) Cholelithiasis: 83 yo male with 1 week history of intermittent epigastric/upper abdominal pain with nausea and vomiting x 1 presented to ED and upon further work-up found to have likely acute gallstone pancreatitis with possible cholecystitis. Lipase 7381. US showing gallbladder wall thickening up to 8 mm with pericholecystic fluid. Initially wbc normal but has now increased to 12k. T. bili also elevated today to 1.3 (0.9). No evidence of choledocholithiasis on MRCP. Afebrile. Abdomen soft, tenderness in the RUQ and epigastrium. Plan: Discussed with patient and family imaging findings are consistent with gallstone pancreatitis. His wbc has increased today as well as T. bili so will need to trend his labs. Lipase improved down to 3k but still having moderate amount of pain. Discussed need for discussion of cholecystectomy to prevent future biliary obstruction or pancreatitis. Discussed pending improvement of his labs and symptoms, could discuss cholecystectomy during this admission vs close outpatient cholecystectomy in 1-2 weeks. For now will continue conservative measures with IV fluids, bowel rest, pain management and antiemetics as needed, and IV zosyn. Trend am labs. Will follow along. Dr. Brice has seen and examined patient, see addendum for further recommendations/plan. History of Present Illness Reason for Consultation: Gallstone pancreatitis Requesting Physician: Mike Spence MD Attending Physician: Mike Spence MD History of Present Illness Mr. Morrison is an 83-year-old male with a history of diabetes, hypertension, hyperlipidemia, chronic back pain, enlarged prostate, constipation who presented to the emergency room with complaint of epigastric abdominal pain that was increasing in severity with associated nausea. Pain started last Sunday. States the pain would come and go but then significantly increased yesterday which prompted ER evaluation. He vomited in the emergency room after pain medication was given. He underwent a CT scan of the abdomen pelvis which showed pancreatitis and then underwent ultrasound which showed gallbladder wall thickening concerning for possible cholecystitis and MRCP showing the same. His initial labs showed no leukocytosis and total bilirubin was normal. He states he had an episode of pancreatitis in 2004 which he was told was idiopathic. Patient's family is at bedside including her daughter who is a entry level business analyst in [place]. She states the pancreatitis was idiopathic and they were never told secondary to gallstones. He currently states that he is feeling a little better however pain is still present and currently rating a 4 out of 10. Nausea is controlled. No fevers no chills Allergies Allergy/AdvReac Type Severity Reaction Status Date / Time midazolam AdvReac Intermediate vomiting, Verified 11/09/21 11:07 NAUSEA promethazine AdvReac Intermediate urinary Verified 11/09/21 11:07 retention mushroom AdvReac Mild GI SYMPTOMS Verified 11/09/21 11:07 olive extract AdvReac Mild GI SYMPTOMS Verified 11/09/21 11:07 Home Medications Medication Instructions Recorded Confirmed Type amlodipine 5 mg tablet 5 mg PO QAM 07/13/20 05/07/23 History atorvastatin 10 mg tablet 10 mg PO [id number] 07/13/20 05/07/23 History brinzolamide 1 % eye 1 drp ophthalmic (eye) BID 07/13/20 05/07/23 History drops,suspension (Azopt) dutasteride 0.5 mg-tamsulosin ER 1 cap PO QPM 07/13/20 05/07/23 History 0.4 mg capsule ext.release 24hr mphas lisinopril 20 1 tab PO QPM 07/13/20 05/07/23 History mg-hydrochlorothiazide 25 mg tablet metformin 500 mg tablet 500 mg PO QPM 07/13/20 05/07/23 History tafluprost (PF) 0.0015 % eye drops 1 drp ophthalmic (eye) DAILY 07/13/20 05/07/23 History in a dropperette (Zioptan (PF)) beta-sitosterol 125 mg-vit D3 10 1 tab PO QPM 09/30/21 05/07/23 History ohl-ajkvwota-nyvfobxhd 250 mg tablet (Prostate Max Plus) cholecalciferol (vitamin D3) 50 50 mcg PO DAILY 09/30/21 05/07/23 History mcg (2,000 unit) capsule cyanocobalamin (vitamin B-12) 500 500 mcg PO QAM 09/30/21 05/07/23 History mcg tablet omega-3 fatty acids-fish oil 360 1 cap PO QAM 09/30/21 05/07/23 History mg-1,200 mg capsule (Fish Oil) betamethasone valerate 0.1 % 1 applic topical BID PRN phimosis 05/07/23 05/07/23 Rx topical ointment #15 grams vibegron 75 mg tablet 75 mg PO DAILY #30 tabs 05/07/23 05/07/23 Rx Patient History Medical History BPH (benign prostatic hyperplasia) Glaucoma Hearing deficit History of back problems Hx of pancreatitis Hyperlipidemia Hypertension Prediabetes Surgical History H/O eye surgery H/O right inguinal hernia repair History of cataract surgery History of tooth extraction Hx of colonoscopy Nausea and vomiting after administration of anesthetic agent S/P left inguinal hernia repair (10/04/21) Family History Father Heart disease Hypertension Stroke Brother Hearing loss Heart disease Stroke Asthma Other No family history of adverse response to anesthesia No family history of allergies No family history of bleeding disorder Denies family history of Cancer Social History Smoking Status: Never smoker Second Hand Exposure: No; Do You Dip or Chew Tobacco: No; Hx Alcohol Use: No Hx Substance Use: No Preferred Language: Lithuanian Communication Ability: Effective Visual Impairment: No 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 Beliefs That Will Affect Care: None marital status: Current Living Situation: Spouse and Family Current Living Situation Comment: and daughter current occupational status: retired How many Children do You have: 2 Feels Safe at Home: Yes during the past year weight has: decreased > 10 lbs Assistive Devices: None Review of Systems Review of Systems: All systems reviewed & are unremarkable except as noted in HPI & below Physical Exam Constitutional: cooperative and comfortable; no acute distress and not ill appearing Respiratory: normal respiratory effort; no respiratory distress, no labored breathing and no retractions Gastrointestinal (Abdomen): Inspection/Auscultation: abdomen normal to inspection; abdomen not distended Percussion/Palpation: + abdomen tender (Epigastrium and right upper quadrant) and abdomen soft; no guarding, abdomen not rigid and abdomen not firm Skin: no rashes, warm and dry no jaundice Psychiatric: Orientation: alert and oriented x 3 Results & Data Vital Signs (Past 12 Hours) Vital Signs Temp Pulse Pulse Pulse Resp BP Pulse Ox 11/26/24 11:39 36.8 C 74 18 146/65 H 92 01/08/24 08:13 36.7 C 67 20 123/60 95 01/08/24 07:00 75 01/08/24 04:00 37 C 77 16 156/67 H 95 01/08/24 01:00 01/08/24 01:00 37.2 C 89 18 159/69 H 94 01/08/24 00:56 89 O2 Del Method 01/08/24 11:39 Room Air 01/08/24 08:13 Room Air 01/08/24 07:00 01/08/24 04:00 Room Air 01/08/24 01:00 Room Air 01/08/24 01:00 Room Air 01/08/24 00:56 Laboratory Results 01/08/24 01/08/24 01/07/24 Range/Units 06:53 06:17 17:53 WBC 12.52 H (4.8-10.8) K/ul RBC 3.62 L (4.70-6.10) M/uL Hgb 11.4 L (14.0-18.0) g/dl POC Hgb 13.6 L (14.0-18.0) g/dl Hct 32.9 L (42.0-52.0) % POC Hct 40 L (42-52) % MCV 90.9 (80.0-100.0) fL MCH 31.5 (25.0-34.0) pg MCHC 34.7 (32.0-36.0) g/dL RDW Std Deviation 38.8 (36.4-46.3) fL RDW Coeff of [place] 11.6 (11.5-14.5) % Plt Count 220 (130-400) K/uL MPV 9.2 L (9.4-12.4) fL Immature Gran % (Auto) 0.3 % Neut % (Auto) 90.2 % Lymph % (Auto) 5.7 % [place] % (Auto) 3.5 % Eos % (Auto) 0.1 % Baso % (Auto) 0.2 % Neut # (Auto) 11.30 H (1.40-6.50) K/uL Lymph # (Auto) 0.71 L (1.20-3.40) K/uL [place] # (Auto) 0.44 (0.11-0.59) K/uL Eos # (Auto) 0.01 (0.00-0.50) K/uL Baso # (Auto) 0.02 (0.00-0.20) K/uL Immature Gran # (Auto) 0.04 (0.01-0.20) K/uL PT 11.2 (9.0-12.0) Seconds INR 1.0 (0.9-1.1) APTT 25 (21-31) Seconds PTT Ratio 0.9 POC Sodium 136 (135-144) mmol/L Sodium 141 (136-145) mmol/L POC Potassium 3.9 (3.3-5.0) mmol/L Potassium 3.8 (3.5-5.1) mmol/L POC Chloride 98 L (101-112) mmol/L Chloride 108 H (98-107) mmol/L Carbon Dioxide 27 (21-32) mmol/L POC Total CO2 25 (24-31) mmol/L Anion Gap 6 (3-11) POC Anion Gap 17.0 (16-25) mmol/L POC BUN 13 (7-18) mg/dl BUN 15 (6-23) mg/dl Creatinine 0.81 (0.6-1.4) mg/dl POC Creatinine 0.7 (0.6-1.3) mg/dl Est Cr Clr Drug Dosing 56.8 ml/min eGFR 86.94 BUN/Creatinine Ratio 18.5 (10-20) Glucose 160 H (70-99(Fasting)) mg/dl POC Glucose 168 H (70-99) mg/dl POC Glucose (other) 125 H (70-99) mg/dl Estimat Average Glucose 134 mg/dl Hemoglobin A1c 6.3 H (4.5-5.6) % Calcium 8.3 L (8.6-10.3) mg/dl POC Ioniz Calcium Yosef 1.23 (1.12-1.32) mmol/l Magnesium 1.9 (1.7-2.4) mg/dl Total Bilirubin 1.3 H (0.2-1.0) mg/dl AST 80 H (13-39) U/L ALT 93 H (7-52) U/L Alkaline Phosphatase 73 (34-104) U/L Troponin I High Sens (0-20) pg/ml Total Protein 5.8 L D (6.0-8.3) gm/dl Albumin 3.3 L (3.4-5.0) gm/dl Globulin 2.5 (2.5-4.0) gm/dl Albumin/Globulin Ratio 1.3 (0.9-2) Triglycerides 39 (0-150) mg/dl Cholesterol 112 (0-200) mg/dl LDL Cholesterol, Calc 69 mg/dl VLDL Cholesterol, Calc 8 (0-30) mg/dl HDL Cholesterol 35 mg/dl Cholesterol/HDL Ratio 3.2 (0-5) Lipase 3157 H (11-82) U/L 01/07/24 01/07/24 Range/Units 17:51 17:36 WBC 5.79 (4.8-10.8) K/ul RBC 4.38 L (4.70-6.10) M/uL Hgb 13.7 L (14.0-18.0) g/dl POC Hgb (14.0-18.0) g/dl Hct 40.2 L (42.0-52.0) % POC Hct (42-52) % MCV 91.8 (80.0-100.0) fL MCH 31.3 (25.0-34.0) pg MCHC 34.1 (32.0-36.0) g/dL RDW Std Deviation 39.3 (36.4-46.3) fL RDW Coeff of Selina 11.6 (11.5-14.5) % Plt Count 264 (130-400) K/uL MPV 9.1 L (9.4-12.4) fL Immature Gran % (Auto) 0.3 % Neut % (Auto) 54.2 % Lymph % (Auto) 30.1 % [place] % (Auto) 9.0 % Eos % (Auto) 5.9 % Baso % (Auto) 0.5 % Neut # (Auto) 3.14 (1.40-6.50) K/uL Lymph # (Auto) 1.74 (1.20-3.40) K/uL [place] # (Auto) 0.52 (0.11-0.59) K/uL Eos # (Auto) 0.34 (0.00-0.50) K/uL Baso # (Auto) 0.03 (0.00-0.20) K/uL Immature Gran # (Auto) 0.02 (0.01-0.20) K/uL PT 10.9 (9.0-12.0) Seconds INR 1.0 (0.9-1.1) APTT 25 (21-31) Seconds PTT Ratio 0.9 POC Sodium (135-144) mmol/L Sodium 136 (136-145) mmol/L POC Potassium (3.3-5.0) mmol/L Potassium 4.0 (3.5-5.1) mmol/L POC Chloride (101-112) mmol/L Chloride 99 (98-107) mmol/L Carbon Dioxide 31 (21-32) mmol/L POC Total CO2 (24-31) mmol/L Anion Gap 6 (3-11) POC Anion Gap (16-25) mmol/L POC BUN (7-18) mg/dl BUN 15 (6-23) mg/dl Creatinine 0.75 (0.6-1.4) mg/dl POC Creatinine (0.6-1.3) mg/dl Est Cr Clr Drug Dosing 61.4 ml/min eGFR 88.98 BUN/Creatinine Ratio 20.0 (10-20) Glucose 131 H (70-99(Fasting)) mg/dl POC Glucose 139 H (70-99) mg/dl POC Glucose (other) (70-99) mg/dl Estimat Average Glucose mg/dl Hemoglobin A1c (4.5-5.6) % Calcium 10.0 (8.6-10.3) mg/dl POC Ioniz Calcium Yosef (1.12-1.32) mmol/l Magnesium (1.7-2.4) mg/dl Total Bilirubin 0.9 (0.2-1.0) mg/dl AST 98 H (13-39) U/L ALT 50 (7-52) U/L Alkaline Phosphatase 79 (34-104) U/L Troponin I High Sens 6.0 (0-20) pg/ml Total Protein 7.5 (6.0-8.3) gm/dl Albumin 4.5 (3.4-5.0) gm/dl Globulin 3.0 (2.5-4.0) gm/dl Albumin/Globulin Ratio 1.5 (0.9-2) Triglycerides (0-150) mg/dl Cholesterol (0-200) mg/dl LDL Cholesterol, Calc mg/dl VLDL Cholesterol, Calc (0-30) mg/dl HDL Cholesterol mg/dl Cholesterol/HDL Ratio (0-5) Lipase 7381 H (11-82) U/L Diagnostic Findings EXAMINATION: CT angio abdomen pelvis with con CLINICAL HISTORY: Epigastric pain, dyspnea PRIORS: None TECHNIQUE: Contiguous CTA axial images were obtained through the abdomen and pelvis with the use of intravenous contrast. Sagittal and coronal reformations are supplied. FINDINGS: The abdominal aorta is normal in caliber with moderate atherosclerotic disease. No intimal flap, surrounding inflammatory change or extravasation. No aneurysmal dilatation. No retroperitoneal hemorrhage. Allowing for arterial phase, the gallbladder contains innumerable layering gallstones. The liver, pancreas, spleen, stomach, adrenals, kidneys are morphologically unremarkable. Appendix is normal in the right lower quadrant. Urinary bladder shows circumferential wall thickening with moderate enlargement of the prostate. A moderate to large amount of formed stool present in the colon. No pericolonic inflammatory change. No free fluid in the pelvis. No hemoperitoneum. In bone windows, moderate osseous demineralization noted. Degenerative change of the lumbosacral spine. IMPRESSION: 1. No CTA evidence of an abdominal aorta dissection or aneurysmal dilatation. 2. Innumerable gallstones identified within the gallbladder lumen. Right upper quadrant ultrasound could be considered given the history of epigastric pain. Exam(s): US LIVER EXAM: US Abdomen Limited CLINICAL HISTORY: Reason for exam: pain, pancreatitis, stones?. TECHNIQUE: Real-time ultrasound of the abdomen with image documentation. COMPARISON: No relevant prior studies available. FINDINGS: Liver: Subcentimeter echogenic left hepatic lobe lesion, nonspecific, potentially hemangioma. Liver measures 12.5 cm. Portal vein patent and normally directed. Gallbladder: Cholelithiasis, gallbladder distention, and wall thickening measuring up to 8 mm. Common bile duct: No biliary dilatation. CBD measures 3 mm. Pancreas: Hypoechoic appearance of the pancreas, which can be seen with pancreatitis. IMPRESSION: 1. Cholelithiasis, gallbladder distention, and wall thickening measuring up to 8 mm. Imaging appearance raises the possibility of cholecystitis. Geller sign reported as negative, although status of premedication is unknown. 2. Hypoechoic appearance of the pancreas, which can be seen with pancreatitis. Correlate with serum lipase. Exam(s): MRI MRCP EXAM: MR Abdomen Without Intravenous Contrast, MRCP Protocol CLINICAL HISTORY: Reason for exam: transaminitis, pancreatitis, gallstones. TECHNIQUE: Multiplanar magnetic resonance images of the abdomen without intravenous contrast using MRCP protocol. COMPARISON: CTA abdomen and pelvis 01/07/24 FINDINGS: Lung bases are clear. There is cholelithiasis, gallbladder distention, gallbladder wall edema. There is no intrahepatic or extrahepatic biliary dilatation. Common bile duct measures 7 mm, normal in caliber for patient age. There is no choledocholithiasis. Liver, spleen, and adrenal glands are unremarkable. There is a benign subcentimeter T2 hyperintense cyst in the left kidney; no follow-up is indicated. Kidneys appear otherwise unremarkable. There is no hydronephrosis. There is edema and fluid along the pancreas without pancreatic duct dilatation or organized peripancreatic collection. IMPRESSION: 1. Peripancreatic edema and fluid suggesting acute pancreatitis. Correlate with serum lipase. 2. Cholelithiasis and gallbladder wall edema, cholecystitis not excluded. 3. No biliary dilatation or choledocholithiasis. I Personally reviewed images above and concur with above findings (2) Pancreatitis Chronicity: acute
[2024-01-08] MEDS: KETOROLAC TROMETHAMINE 15 MG/ML VIAL IV ONE (15:52)
--- NOTE | 2024-01-08 18:19 | Electrocardiogram Report ---
Test Reason : Blood Pressure : */* mmHG Vent. Rate : 73 BPM Atrial Rate : 73 BPM P-R Int : 148 ms QRS Dur : 74 ms QT Int : 360 ms P-R-T Axes : 53 54 60 degrees QTcB Int : 396 ms Normal sinus rhythm Normal ECG When compared with ECG of 30-Sep-2021 11:14, No significant change was found Confirmed by Vahid Ambriz ([id number]) on 01/08/2024 6:18:32 PM Referred By: Confirmed By: Vahid Ambriz
[2024-01-08] MEDS: ONDANSETRON INJ 2 MG/ML 2 ML VIAL IV PRN (19:44)
[2024-01-08] MEDS: HEPARIN SOD 5,000 UNIT/0.5 ML VIAL SQ SCH (20:33)
[2024-01-09 06:28] LABS: Basophils # (auto) 0.03 K/uL (0.00-0.20); Basophils % (auto) 0.3 %; Eosinophils # (auto) 0.05 K/uL (0.00-0.50); Eosinophils % (auto) 0.5 %; Hematocrit (blood only) 30.3 % (42.0-52.0); Hemoglobin 10.2 g/dl (14.0-18.0); Immature Granulocytes # (auto) 0.05 K/uL (0.01-0.20); Immature Granulocytes % (auto) 0.5 %; Lymphocytes # (auto) 0.88 K/uL (1.20-3.40); Mean Corpuscular Hgb Conc 33.7 g/dL (32.0-36.0); Mean Corpuscular Volume 92.1 fL (80.0-100.0); Mean Platelet Volume 9.3 fL (9.4-12.4); Monocytes # (auto) 0.69 K/uL (0.11-0.59); Monocytes % (auto) 6.3 %; Neutrophils # (auto) 9.24 K/uL (1.40-6.50); Neutrophils % (auto) 84.4 %; Platelet Count 190 K/uL (130-400); RDW Coefficient of Variation 11.9 % (11.5-14.5); RDW Standard Deviation 40.6 fL (36.4-46.3); Red Blood Count 3.29 M/uL (4.70-6.10); White Blood Count 10.94 K/ul (4.8-10.8)
[2024-01-09 06:46] LABS: BUN Creatinine Ratio 20.3 (10-20); Calcium 8.2 mg/dl (8.6-10.3); Creatinine Clr Calc Pharmacy 58.3 ml/min; Potassium 3.4 mmol/L (3.5-5.1)
[2024-01-09 06:47] LABS: Albumin Globulin Ratio 1.3 (0.9-2); Bilirubin,Total 1.4 mg/dl (0.2-1.0); Globulin 2.4 gm/dl (2.5-4.0); Magnesium 1.7 mg/dl (1.7-2.4); Total Protein 5.4 gm/dl (6.0-8.3)
[2024-01-09 06:51] LABS: INR 1.1 (0.9-1.1); Partial Thromboplastin Time 27 Seconds (21-31)
--- NOTE | 2024-01-09 08:03 | Hospitalist Progress Note ---
Date of Service January 09, 2024 Assessment & Plan (1) Pancreatitis: Plan: pt with abdominal pain, vomiting from suspected gall stone pancreatitis and cholecystitis CT angiography/pelvis with innumerable gallstones identified within the gallbladder lumen, with suggestion to order right upper quadrant ultrasound. CT angiography chest was negative for aortic dissection Liver ultrasound showed cholelithiasis, gallbladder distention and wall thickening measuring up to 8 mm. Zosyn changed to ceftriaxone and metronidazole labs trending in favorable way surgery is following, currently planning on out pt jacinta if labs/clinical picture trend favorably (2) Hypertension: Plan: Hold amlodipine, lisinopril/HCTZ while patient is n.p.o. Hydralazine 10 mg IV every 4 hours as needed for systolic blood pressure greater than 160 (3) Diabetes: Plan: A1c 6.3 Hold metformin Placed on Accu-Cheks with NovoLog SSI (4) Hyperlipemia: Plan: atorvastatin on hold Plan BPH Hold dutasteride and tamsulosin while patient is n.p.o. Follow urine output CODE STATUS: Full code DVT prophylaxis: Bilateral SCDs, start heparin subcutaneous twice daily Admission and Anticipated Discharge Date Admission Date: January 07, 2024 Subjective Pt did have some post prandial pain, pain is more left side and occasionally to lower left back family at bedside and updated x 2 Physical Exam Physical Exam: awake, minor distress, abd is soft and mildly tender, has left SI joint pain that maybe from laying in bed cardiac is regular lungs are clear Results & Data Results & Data Vital Signs (Past 12 Hours) Vital Signs Temp Pulse Pulse Resp BP Pulse Ox O2 Del Method 01/09/24 07:30 76 01/09/24 04:27 98.8 F 76 17 131/66 92 Room Air 01/09/24 00:11 99.5 F 80 20 123/60 90 Room Air 01/08/24 23:13 Room Air 01/08/24 21:55 81 Laboratory Results review cbc review chemistry review lipase PG Care Time/CCT Total # of Minutes Spent Total Time Spent with Patient: Total time spent is greater than 50% in coordination of care (as documented) at patient's floor/unit and/or counseling patient: Coding Level of Care Code 01998 SUB INP/OBS CARE 3/50MIN Diagnoses Pancreatitis K85.90 Chronicity: acute Hypertension I10 Diabetes E11.9 Hyperlipemia E78.5 (1) Pancreatitis Chronicity: acute
--- NOTE | 2024-01-09 09:33 | Surgery Progress Note ---
Date of Service January 09, 2024 Assessment & Plan (1) Abdominal pain with vomiting: (2) Pancreatitis: (3) Cholelithiasis: Plan: 83 yo male with 1 week history of intermittent epigastric/upper abdominal pain with nausea and vomiting x 1 presented to ED and upon further work-up found to have likely acute gallstone pancreatitis with possible cholecystitis. Lipase 7381. US showing gallbladder wall thickening up to 8 mm with pericholecystic fluid. Initially wbc normal but has now increased to 12k. T. bili also elevated today to 1.3 (0.9). No evidence of choledocholithiasis on MRCP. Afebrile. Abdomen soft, tenderness in the RUQ and epigastrium. 01/09/2024 avss leukocytosis improved LFTS wnl T. bili 1.4 (1.3) d. bili 0.3 Alk phos normal lipase improving 7k --> 3k --> 1K Pain improved Plan: Will add direct bili on to am labs continue IV fluids and pain management possibly clear liquids later today encouraged ambulation continue IV zosyn continue medical management will need to determine timing for cholecystectomy based on further improvement of lipase and LFTs, likely close outpatient cholecystectomy as lipase still elevated repeat labs tomorrow Dr. rBice has seen and examined patient, see addendum for further recommendations/plan. Admission and Anticipated Discharge Date Admission Date: January 07, 2024 Subjective pain improved to 1-2/10 today, nausea resolved dilaudid helps with pain no vomiting not passing gas no bowel movement Physical Exam Constitutional: WD/WN, vitals as above cooperative and comfortable; no acute distress and not ill appearing Respiratory: normal respiratory effort; no respiratory distress Gastrointestinal (Abdomen): Inspection/Auscultation: abdomen normal to inspection; abdomen not distended Percussion/Palpation: + abdomen tender (epigastrium and RUQ, improved) and abdomen soft; no guarding, abdomen not rigid and abdomen not firm Skin: no rashes, warm and dry no jaundice Psychiatric: Orientation: alert and oriented x 3 Results & Data Vital Signs (Past 12 Hours) Vital Signs Temp Pulse Pulse Resp BP Pulse Ox O2 Del Method 01/09/24 08:16 37.0 C 73 18 138/66 92 Room Air 01/09/24 07:30 76 01/09/24 04:27 37.1 C 76 17 131/66 92 Room Air 01/09/24 00:11 37.5 C 80 20 123/60 90 Room Air 01/08/24 23:13 Room Air 01/08/24 21:55 81 Laboratory Results 01/09/24 01/09/24 01/08/24 Range/Units 05:44 04:24 22:31 WBC 10.94 H (4.8-10.8) K/ul RBC 3.29 L (4.70-6.10) M/uL Hgb 10.2 L (14.0-18.0) g/dl Hct 30.3 L (42.0-52.0) % MCV 92.1 (80.0-100.0) fL MCH 31.0 (25.0-34.0) pg MCHC 33.7 (32.0-36.0) g/dL RDW Std Deviation 40.6 (36.4-46.3) fL RDW Coeff of [place] 11.9 (11.5-14.5) % Plt Count 190 (130-400) K/uL MPV 9.3 L (9.4-12.4) fL Immature Gran % (Auto) 0.5 % Neut % (Auto) 84.4 % Lymph % (Auto) 8.0 % [place] % (Auto) 6.3 % Eos % (Auto) 0.5 % Baso % (Auto) 0.3 % Neut # (Auto) 9.24 H (1.40-6.50) K/uL Lymph # (Auto) 0.88 L (1.20-3.40) K/uL [place] # (Auto) 0.69 H (0.11-0.59) K/uL Eos # (Auto) 0.05 (0.00-0.50) K/uL Baso # (Auto) 0.03 (0.00-0.20) K/uL Immature Gran # (Auto) 0.05 (0.01-0.20) K/uL PT 12.0 (9.0-12.0) Seconds INR 1.1 (0.9-1.1) APTT 27 (21-31) Seconds PTT Ratio 1.0 Sodium 141 (136-145) mmol/L Potassium 3.4 L (3.5-5.1) mmol/L Chloride 108 H (98-107) mmol/L Carbon Dioxide 26 (21-32) mmol/L Anion Gap 7 (3-11) BUN 16 (6-23) mg/dl Creatinine 0.79 (0.6-1.4) mg/dl Est Cr Clr Drug Dosing 58.3 ml/min eGFR 87.60 BUN/Creatinine Ratio 20.3 H (10-20) Glucose 113 H (70-99(Fasting)) mg/dl POC Glucose 109 H 121 H (70-99) mg/dl Calcium 8.2 L (8.6-10.3) mg/dl Magnesium 1.7 (1.7-2.4) mg/dl Total Bilirubin 1.4 H (0.2-1.0) mg/dl AST 34 (13-39) U/L ALT 56 H (7-52) U/L Alkaline Phosphatase 58 (34-104) U/L Total Protein 5.4 L (6.0-8.3) gm/dl Albumin 3.0 L (3.4-5.0) gm/dl Globulin 2.4 L (2.5-4.0) gm/dl Albumin/Globulin Ratio 1.3 (0.9-2) Lipase 1738 H (11-82) U/L Vitamin B12 1392 H (180-914) pg/ml 01/08/24 Range/Units 18:00 WBC (4.8-10.8) K/ul RBC (4.70-6.10) M/uL Hgb (14.0-18.0) g/dl Hct (42.0-52.0) % MCV (80.0-100.0) fL MCH (25.0-34.0) pg MCHC (32.0-36.0) g/dL RDW Std Deviation (36.4-46.3) fL RDW Coeff of Selina (11.5-14.5) % Plt Count (130-400) K/uL MPV (9.4-12.4) fL Immature Gran % (Auto) % Neut % (Auto) % Lymph % (Auto) % [place] % (Auto) % Eos % (Auto) % Baso % (Auto) % Neut # (Auto) (1.40-6.50) K/uL Lymph # (Auto) (1.20-3.40) K/uL [place] # (Auto) (0.11-0.59) K/uL Eos # (Auto) (0.00-0.50) K/uL Baso # (Auto) (0.00-0.20) K/uL Immature Gran # (Auto) (0.01-0.20) K/uL PT (9.0-12.0) Seconds INR (0.9-1.1) APTT (21-31) Seconds PTT Ratio Sodium (136-145) mmol/L Potassium (3.5-5.1) mmol/L Chloride (98-107) mmol/L Carbon Dioxide (21-32) mmol/L Anion Gap (3-11) BUN (6-23) mg/dl Creatinine (0.6-1.4) mg/dl Est Cr Clr Drug Dosing ml/min eGFR BUN/Creatinine Ratio (10-20) Glucose (70-99(Fasting)) mg/dl POC Glucose 126 H (70-99) mg/dl Calcium (8.6-10.3) mg/dl Magnesium (1.7-2.4) mg/dl Total Bilirubin (0.2-1.0) mg/dl AST (13-39) U/L ALT (7-52) U/L Alkaline Phosphatase (34-104) U/L Total Protein (6.0-8.3) gm/dl Albumin (3.4-5.0) gm/dl Globulin (2.5-4.0) gm/dl Albumin/Globulin Ratio (0.9-2) Lipase (11-82) U/L Vitamin B12 (180-914) pg/ml (2) Pancreatitis Chronicity: acute
[2024-01-09 10:24] LABS: Bilirubin Direct 0.3 mg/dl (0-0.2)
[2024-01-09] MEDS: PLASMA-LYTE A 1,000 ML IV SCH (11:37)
[2024-01-09] MEDS ORDERED: PLASMA-LYTE A 2,000 ML IV SCH (13:45)
[2024-01-09] MEDS: metroNIDAZOLE 500 MG/100 ML BAG IV SCH (15:35)
[2024-01-09] MEDS: cefTRIAXone SODIUM 2,000 MG/50 ML BAG IV SCH (16:50)
[2024-01-09] MEDS: INSULIN ASPART PER UNIT CHARGE SC SCH (22:30)
[2024-01-10 05:25] LABS: Basophils # (auto) 0.03 K/uL (0.00-0.20); Basophils % (auto) 0.3 %; Eosinophils # (auto) 0.21 K/uL (0.00-0.50); Eosinophils % (auto) 2.3 %; Hematocrit (blood only) 30.8 % (42.0-52.0); Hemoglobin 10.3 g/dl (14.0-18.0); Immature Granulocytes # (auto) 0.05 K/uL (0.01-0.20); Immature Granulocytes % (auto) 0.6 %; Lymphocytes # (auto) 0.81 K/uL (1.20-3.40); Mean Corpuscular Hemoglobin 31.4 pg (25.0-34.0); Mean Corpuscular Hgb Conc 33.4 g/dL (32.0-36.0); Mean Corpuscular Volume 93.9 fL (80.0-100.0); Mean Platelet Volume 9.2 fL (9.4-12.4); Monocytes % (auto) 6.7 %; Neutrophils # (auto) 7.32 K/uL (1.40-6.50); Neutrophils % (auto) 81.1 %; Platelet Count 179 K/uL (130-400); RDW Coefficient of Variation 11.7 % (11.5-14.5); RDW Standard Deviation 40.3 fL (36.4-46.3); Red Blood Count 3.28 M/uL (4.70-6.10); White Blood Count 9.02 K/ul (4.8-10.8)
[2024-01-10 05:42] LABS: Albumin Globulin Ratio 1.2 (0.9-2); Albumin Level 2.9 gm/dl (3.4-5.0); BUN Creatinine Ratio 25.4 (10-20); Calcium 8.1 mg/dl (8.6-10.3); Globulin 2.5 gm/dl (2.5-4.0); Potassium 3.5 mmol/L (3.5-5.1); Total Protein 5.4 gm/dl (6.0-8.3)
[2024-01-10 05:56] LABS: INR 1.1 (0.9-1.1); Partial Thromboplastin Time 27 Seconds (21-31); Prothrombin Time 11.4 Seconds (9.0-12.0)
[2024-01-10] MEDS: PLASMA-LYTE A 2,000 ML IV SCH (06:31)
[2024-01-10] MEDS: KETOROLAC TROMETHAMINE 15 MG/ML VIAL IV ONE (06:32)
--- NOTE | 2024-01-10 12:02 | Surgery Progress Note ---
Date of Service January 10, 2024 Assessment & Plan (1) Abdominal pain with vomiting: (2) Pancreatitis: (3) Cholelithiasis: Plan: 83 yo male with 1 week history of intermittent epigastric/upper abdominal pain with nausea and vomiting x 1 presented to ED and upon further work-up found to have likely acute gallstone pancreatitis with possible cholecystitis. Lipase 7381. US showing gallbladder wall thickening up to 8 mm with pericholecystic fluid. Initially wbc normal but has now increased to 12k. T. bili also elevated today to 1.3 (0.9). No evidence of choledocholithiasis on MRCP. Afebrile. Abdomen soft, tenderness in the RUQ and epigastrium. 01/10/2024 avss leukocytosis improved LFTS wnl T. bili 1.0 Alk phos normal lipase improving 7k --> 3k --> 1K --> 450 Pain improved Plan: continue IV fluids and pain management Advance diet as tolerated encouraged ambulation continue IV zosyn continue medical management we will plan for outpatient cholecystectomy repeat labs tomorrow Admission and Anticipated Discharge Date Admission Date: January 07, 2024 Subjective continues to feel better. Minimal discomfort in the abdomen. No nausea or vomiting. No fevers or chills. Physical Exam Gastrointestinal (Abdomen): Inspection/Auscultation: abdomen normal to inspection; abdomen not distended Percussion/Palpation: + abdomen tender (epigastrium and RUQ, improved) and abdomen soft; no guarding, abdomen not rigid and abdomen not firm Results & Data Vital Signs (Past 12 Hours) Vital Signs Temp Pulse Resp BP Pulse Ox O2 Del Method 01/10/24 07:43 36.7 C 67 16 151/67 H 95 Room Air 01/10/24 03:46 36.9 C 72 18 155/62 H 92 Room Air Laboratory Results 01/10/24 01/10/24 01/09/24 Range/Units 08:45 05:00 22:51 WBC 9.02 (4.8-10.8) K/ul RBC 3.28 L (4.70-6.10) M/uL Hgb 10.3 L (14.0-18.0) g/dl Hct 30.8 L (42.0-52.0) % MCV 93.9 (80.0-100.0) fL MCH 31.4 (25.0-34.0) pg MCHC 33.4 (32.0-36.0) g/dL RDW Std Deviation 40.3 (36.4-46.3) fL RDW Coeff of Selina 11.7 (11.5-14.5) % Plt Count 179 (130-400) K/uL MPV 9.2 L (9.4-12.4) fL Immature Gran % (Auto) 0.6 % Neut % (Auto) 81.1 % Lymph % (Auto) 9.0 % Woodruff % (Auto) 6.7 % Eos % (Auto) 2.3 % Baso % (Auto) 0.3 % Neut # (Auto) 7.32 H (1.40-6.50) K/uL Lymph # (Auto) 0.81 L (1.20-3.40) K/uL Woodruff # (Auto) 0.60 H (0.11-0.59) K/uL Eos # (Auto) 0.21 (0.00-0.50) K/uL Baso # (Auto) 0.03 (0.00-0.20) K/uL Immature Gran # (Auto) 0.05 (0.01-0.20) K/uL PT 11.4 (9.0-12.0) Seconds INR 1.1 (0.9-1.1) APTT 27 (21-31) Seconds PTT Ratio 1.0 Sodium 138 (136-145) mmol/L Potassium 3.5 (3.5-5.1) mmol/L Chloride 105 (98-107) mmol/L Carbon Dioxide 25 (21-32) mmol/L Anion Gap 8 (3-11) BUN 15 (6-23) mg/dl Creatinine 0.59 L (0.6-1.4) mg/dl Est Cr Clr Drug Dosing 78.0 ml/min eGFR 95.67 BUN/Creatinine Ratio 25.4 H (10-20) Glucose 87 (70-99(Fasting)) mg/dl POC Glucose 96 93 (70-99) mg/dl Calcium 8.1 L (8.6-10.3) mg/dl Magnesium 2.0 (1.7-2.4) mg/dl Total Bilirubin 1.0 (0.2-1.0) mg/dl AST 21 (13-39) U/L ALT 39 (7-52) U/L Alkaline Phosphatase 57 (34-104) U/L Total Protein 5.4 L (6.0-8.3) gm/dl Albumin 2.9 L (3.4-5.0) gm/dl Globulin 2.5 (2.5-4.0) gm/dl Albumin/Globulin Ratio 1.2 (0.9-2) Lipase 437 H (11-82) U/L 01/09/24 Range/Units 18:11 WBC (4.8-10.8) K/ul RBC (4.70-6.10) M/uL Hgb (14.0-18.0) g/dl Hct (42.0-52.0) % MCV (80.0-100.0) fL MCH (25.0-34.0) pg MCHC (32.0-36.0) g/dL RDW Std Deviation (36.4-46.3) fL RDW Coeff of Selina (11.5-14.5) % Plt Count (130-400) K/uL MPV (9.4-12.4) fL Immature Gran % (Auto) % Neut % (Auto) % Lymph % (Auto) % Woodruff % (Auto) % Eos % (Auto) % Baso % (Auto) % Neut # (Auto) (1.40-6.50) K/uL Lymph # (Auto) (1.20-3.40) K/uL Woodruff # (Auto) (0.11-0.59) K/uL Eos # (Auto) (0.00-0.50) K/uL Baso # (Auto) (0.00-0.20) K/uL Immature Gran # (Auto) (0.01-0.20) K/uL PT (9.0-12.0) Seconds INR (0.9-1.1) APTT (21-31) Seconds PTT Ratio Sodium (136-145) mmol/L Potassium (3.5-5.1) mmol/L Chloride (98-107) mmol/L Carbon Dioxide (21-32) mmol/L Anion Gap (3-11) BUN (6-23) mg/dl Creatinine (0.6-1.4) mg/dl Est Cr Clr Drug Dosing ml/min eGFR BUN/Creatinine Ratio (10-20) Glucose (70-99(Fasting)) mg/dl POC Glucose 84 (70-99) mg/dl Calcium (8.6-10.3) mg/dl Magnesium (1.7-2.4) mg/dl Total Bilirubin (0.2-1.0) mg/dl AST (13-39) U/L ALT (7-52) U/L Alkaline Phosphatase (34-104) U/L Total Protein (6.0-8.3) gm/dl Albumin (3.4-5.0) gm/dl Globulin (2.5-4.0) gm/dl Albumin/Globulin Ratio (0.9-2) Lipase (11-82) U/L (2) Pancreatitis Chronicity: acute
[2024-01-10] MEDS: hydrALAZINE HCL 20 MG/ML VIAL IV PRN (13:03)
--- NOTE | 2024-01-10 13:47 | Hospitalist Progress Note ---
Date of Service January 10, 2024 Assessment & Plan (1) Pancreatitis: Plan: Acute gallstone pancreatitis with Acute cholecystitis-improving CT angiography/pelvis with innumerable gallstones identified within the gallbladder lumen, with suggestion to order right upper quadrant ultrasound. CT angiography chest was negative for aortic dissection Liver ultrasound showed cholelithiasis, gallbladder distention and wall thickening measuring up to 8 mm. Imaging appearance raises the possibility of cholecystitis , but Geller sign was negative. Hypoechoic appearance of the pancreas could be seen with pancreatitis MRCP showed peripancreatic edema and fluid suggesting acute pancreatitis. Cholelithiasis and gallbladder wall edema, with cholecystitis not excluded Lipase 7381 now down to 437 TGs and calcium levels normal. No EtOH use Total bili is elevated to 1.1 and white count was up but both now normalized Initially treated with IV Zosyn and now on ceftriaxone and flagyl-continue and convert to po antibiotics on discharge for 10-14 day course Appreciate Gen Surgery management--> continue with IV antibiotics, advance diet as tolerated, plan for interval outpatient cholecystectomy Follow CBC, BMP, LFTs, lipase, Mag, Phos in AM Advance diet to low fat Add incentive spirometry for suspected crackles/atelectasis on exam-asked RN to bring Encouraged ambulation in halls tid Dc IVFs (2) Hypertension: Plan: Can now resume home amlodipine, lisinopril as no longer NPO Hydralazine 10 mg IV every 4 hours as needed for systolic blood pressure greater than 160 (3) Diabetes: Plan: A1c 6.3 Hold metformin from home Placed on Accu-Cheks with NovoLog SSI (4) Back pain: Plan: suspect MSK in nature from lying in bed. +TTP on exam, no massess/hematoma Add lidocaine patch, prn po tylenol and prn ibuprofen Encouraged out of bed and ambulation Plan BPH can resume home tamsulosin Follow urine output Hyperlipidemia: can resume home atorvastatin now that taking po CODE STATUS: Full code DVT prophylaxis: Bilateral SCDs, heparin subcutaneous twice daily Dispo-possible dc in next 1-2 days if tolerating low fat diet and continues to clinically improve. Ordered PT/OT consults as has been in be a lot during hospitalization Admission and Anticipated Discharge Date Admission Date: January 07, 2024 Subjective Pt feeling well, no nausea, is moving his bowels and making urine. Only very mild pain in abdomen. Having some left mid back pain, not worse with movement. Pain is constant. He did ambulate the halls yesterday Discussed his care with and 2 daughters at the bedside Tele with NSR, rates 60-70s Physical Exam Constitutional: WD/WN, vitals as above Respiratory: normal respiratory effort and + cough (mild with deep inspiration) Auscultation: + crackles (right base that clear with deep breaths); no rhonchi and no wheezes Gastrointestinal (Abdomen): Inspection/Auscultation: normal bowel sounds; abdomen not distended Percussion/Palpation: + abdomen tender (mild in RUQ w/o guarding or rebound) and abdomen soft Musculoskeletal: +TTP over right thoracic paraspinous mus cles, no hematoma or mass, no ecchymosis Neurologic: Gait: not gait assisted (normal gait) Psychiatric: A+Ox3, euthymic affect Results & Data Results & Data Vital Signs (Past 12 Hours) Vital Signs Temp Pulse Pulse Resp BP Pulse Ox O2 Del Method 01/10/24 09:00 70 01/10/24 07:43 36.7 C 67 16 151/67 H 95 Room Air 01/10/24 03:46 36.9 C 72 18 155/62 H 92 Room Air Laboratory Results CBC,CMP, lipase, magnesium reviewed PG Care Time/CCT Total # of Minutes Spent Total Time Spent with Patient: Total time spent is greater than 50% in coordination of care (as documented) at patient's floor/unit and/or counseling patient: Coding Level of Care Code 97179 SUB INP/OBS CARE 2/35MIN Diagnoses Pancreatitis K85.90 Chronicity: acute Hypertension I10 Diabetes E11.9 Back pain M54.9 (1) Pancreatitis Chronicity: acute
[2024-01-10] MEDS: amLODIPine BESYLATE 5 MG TAB PO SCH (15:50)
[2024-01-10] MEDS: LIDOCAINE 5% 1 PATCH TD SCH (15:50)
[2024-01-10] MEDS: ACETAMINOPHEN 500 MG TAB PO PRN (16:05)
[2024-01-10] MEDS: TAMSULOSIN HCL 0.4 MG CAP PO SCH (20:11)
[2024-01-10] MEDS: ATORVASTATIN 10 MG TAB PO SCH (20:11)
[2024-01-11] MEDS: IBUPROFEN 600 MG TAB PO PRN (04:04)
[2024-01-11] MEDS: SODIUM CHLORIDE 0.65% NA SOLN 45 ML (OCEAN) PRN (04:04)
[2024-01-11 06:35] LABS: Basophils # (auto) 0.04 K/uL (0.00-0.20); Basophils % (auto) 0.5 %; Eosinophils % (auto) 2.3 %; Hematocrit (blood only) 29.5 % (42.0-52.0); Immature Granulocytes # (auto) 0.03 K/uL (0.01-0.20); Immature Granulocytes % (auto) 0.3 %; Lymphocytes # (auto) 0.63 K/uL (1.20-3.40); Lymphocytes % (auto) 7.2 %; Mean Corpuscular Hemoglobin 31.2 pg (25.0-34.0); Mean Corpuscular Hgb Conc 33.9 g/dL (32.0-36.0); Mean Corpuscular Volume 91.9 fL (80.0-100.0); Mean Platelet Volume 9.4 fL (9.4-12.4); Monocytes % (auto) 6.9 %; Neutrophils # (auto) 7.23 K/uL (1.40-6.50); Neutrophils % (auto) 82.8 %; Platelet Count 196 K/uL (130-400); RDW Coefficient of Variation 11.6 % (11.5-14.5); RDW Standard Deviation 39.5 fL (36.4-46.3); Red Blood Count 3.21 M/uL (4.70-6.10); White Blood Count 8.73 K/ul (4.8-10.8)
[2024-01-11 06:52] LABS: Albumin Level 2.8 gm/dl (3.4-5.0); BUN Creatinine Ratio 24.1 (10-20); Bilirubin Direct 0.3 mg/dl (0-0.2); Creatinine Clr Calc Pharmacy 79.4 ml/min; Potassium 3.2 mmol/L (3.5-5.1); Total Protein 5.2 gm/dl (6.0-8.3)
[2024-01-11 08:25] VITALS: BP 131/67; RESP 15; TEMP 97.7; O2SAT 93
[2024-01-11] MEDS: lisinopril 20 MG TAB PO SCH (09:46)
[2024-01-11] MEDS: INFLUENZA VACC TS2024-25(65y+)/PF (IIV3) 0.5mL Syr IM ONE (10:02)
--- NOTE | 2024-01-11 10:23 | Surgery Progress Note ---
Date of Service January 11, 2024 Assessment & Plan (1) Cholelithiasis: Plan: will need outpatient lap jacinta appt with Dr Brice 1-2 weeks (2) Pancreatitis: Plan: resolving if repeat symptoms will need ERCP discharge once clinically resolved pancreatitis Admission and Anticipated Discharge Date Admission Date: January 07, 2024 Subjective no complaints of pain taking some po without N/V Review of Systems Constitutional: no fever and no chills Respiratory: no cough and no dyspnea Cardiovascular: no chest pain Gastrointestinal: no abdominal pain, no nausea and no vomiting Neurologic: no localized weakness Psychiatric: no behavioral changes Physical Exam Constitutional: + thin Respiratory: normal respiratory effort, lungs clear to auscultation Cardiovascular: RRR, no murmur, no edema Gastrointestinal (Abdomen): Inspection/Auscultation: abdomen normal to inspection and normal bowel sounds; abdomen not distended Percussion/Palpation: abdomen soft; abdomen nontender, no guarding and abdomen not rigid Musculoskeletal: Head/Neck/Chest: normocephalic and head atraumatic Results & Data Vital Signs (Past 12 Hours) Vital Signs Temp Pulse Resp BP Pulse Ox O2 Del Method 01/11/24 07:50 36.5 C 58 L 15 131/67 93 Room Air 01/10/24 23:30 36.7 C 67 18 144/71 H 94 Room Air 01/10/24 23:29 Room Air (2) Pancreatitis Chronicity: acute
--- NOTE | 2024-01-11 10:55 | Discharge Summary ---
Date of Service January 11, 2024 Admission HPI Per Admitting Provider The patient is an 83-year-old male past medical history including hypertension, hyperlipidemia, B12 deficiency, BPH with LUTS, diabetes mellitus and history of pancreatitis about 20 years ago. He presents to the emergency department with acute worsening today of intermittent epigastric pain that began over the past week. He denies any recent travels or sick exposures. He is not aware of any concerning food intakes. Admission Exam Per Admitting Provider The patient is awake, alert and oriented 3, well developed and well nourished, normocephalic and atraumatic, lying in bed and in moderate distress secondary to epigastric abdominal discomfort HEENT--PERRL, EOMI, mucous membranes and oropharynx dry. Neck--supple. No JVD. No bruits. Thyroid normal, trachea midline, no adenopathy. Heart--normal S1 and S2. No murmurs, rubs or gallops. Lungs--clear bilaterally, no respiratory distress, no accessory muscle use. Abdomen--normal bowel sounds and soft. Moderately tender and tympanitic Extremities--No edema. Dermatologic--normal skin turgor, normal color, no abnormal lymph nodes, no rash. Neurologic--cranial nerves II through XII grossly intact. Rheumatologic--normal range of motion. Psychiatric--normal affect. Principal Diagnosis - Gall stone pancreatitis - Acute cholecystitis. Will need outpatient gall bladder removal Discharge Exam General: Awake, conversant Heart: S1, S2/regular rate and rhythm, no murmur rubs or gallops Lungs: Clear to auscultation bilaterally. Normal effort Abdomen: Soft/nontender/nondistended. No hepatosplenomegaly Extremities: No clubbing/cyanosis. No edema Behavior: Appropriate, cooperative Discharge Data Allergies Allergy/AdvReac Type Severity Reaction Status Date / Time midazolam AdvReac Intermediate vomiting, Verified 11/09/21 11:07 NAUSEA promethazine AdvReac Intermediate urinary Verified 11/09/21 11:07 retention mushroom AdvReac Mild GI SYMPTOMS Verified 11/09/21 11:07 olive extract AdvReac Mild GI SYMPTOMS Verified 11/09/21 11:07 Consultations 01/07/24 19:13 ED Decision to Admit Stat 01/08/24 03:19 Consult General Surgery Routine Ordered Studies Chest X-Ray 01/07/24 17:34 EXAM: X-ray chest one-view portable CLINICAL HISTORY: Chest pain PRIORS: None TECHNIQUE: Upright portable AP chest frontal FINDINGS: Patient is rotated. Lung volumes are diminished. Mediastinum may be widened on the basis of patient rotation. Moderate atherosclerotic disease of the aorta within the [id number]. No pleural effusion. Possible subtle opacification in the right lung base. Heart size is normal. No pneumothorax. Trachea is patent. Osseous structures demonstrate no acute abnormality. No radiopaque foreign body. IMPRESSION: The possibility of streaky opacity in the right lower lobe is raised, allowing for patient rotation. Finding could suggest pneumonia in the proper clinical setting. Please correlate clinically. ACT 112: Positive. There are findings on this examination that require communication between the performing entity and the patient following Patient Test Result Information Act ([place] ACT 112) guidelines. Electronically signed by Marva Sultana 01-07-2024 6:09 PM Abdomen/Pelvis CTA 01/07/24 17:43 EXAMINATION: CT angio abdomen pelvis with con CLINICAL HISTORY: Epigastric pain, dyspnea PRIORS: None TECHNIQUE: Contiguous CTA axial images were obtained through the abdomen and pelvis with the use of intravenous contrast. Sagittal and coronal reformations are supplied. FINDINGS: The abdominal aorta is normal in caliber with moderate atherosclerotic disease. No intimal flap, surrounding inflammatory change or extravasation. No aneurysmal dilatation. No retroperitoneal hemorrhage. Allowing for arterial phase, the gallbladder contains innumerable layering gallstones. The liver, pancreas, spleen, stomach, adrenals, kidneys are morphologically unremarkable. Appendix is normal in the right lower quadrant. Urinary bladder shows circumferential wall thickening with moderate enlargement of the prostate. A moderate to large amount of formed stool present in the colon. No pericolonic inflammatory change. No free fluid in the pelvis. No hemoperitoneum. In bone windows, moderate osseous demineralization noted. Degenerative change of the lumbosacral spine. IMPRESSION: 1. No CTA evidence of an abdominal aorta dissection or aneurysmal dilatation. 2. Innumerable gallstones identified within the gallbladder lumen. Right upper quadrant ultrasound could be considered given the history of epigastric pain. Electronically signed by Marva Sultana 01-07-2024 6:49 PM Chest CTA 01/07/24 17:43 EXAMINATION: CT angio chest dissection without/with contrast CLINICAL HISTORY: Epigastric pain, dyspnea PRIORS: Chest x-ray 01/07/2024 TECHNIQUE: Contiguous axial images were obtained through the chest with the use of intravenous contrast. Sagittal and coronal reformations are supplied. FINDINGS: Noncontrast enhanced images show advanced atherosclerotic disease of the thoracic aorta. No fluid in the mediastinum or surrounding inflammatory change. No pneumomediastinum. Contrast-enhanced images show the ascending aorta measures 3.6 x 3.4 cm, allowing for the absence of gating with no intimal flap or extravasation identified. The descending thoracic aorta demonstrates advanced atherosclerotic disease with no dissection or hemodynamically significant stenosis. Heart size is enlarged. No central pulmonary embolism is identified. No pleural or pericardial effusion. Liquid within the distal portion of the esophagus within the [id number]. No adenopathy in the chest. In lung windows, chest is well-expanded. No dominant mass or airspace consolidation. No pneumothorax. No displaced rib fracture. Moderate osseous demineralization and degenerative change throughout the thoracic spine. IMPRESSION: 1. No CTA evidence of a thoracic aorta dissection. 2. Ascending aorta measures approximately 3.6 cm with moderate atherosclerotic disease. 3. No acute cardiopulmonary process. Electronically signed by Marva Sultana 01-07-2024 6:49 PM Liver Ultrasound 01/07/24 19:30 Exam(s): US LIVER EXAM: US Abdomen Limited CLINICAL HISTORY: Reason for exam: pain, pancreatitis, stones?. TECHNIQUE: Real-time ultrasound of the abdomen with image documentation. COMPARISON: No relevant prior studies available. FINDINGS: Liver: Subcentimeter echogenic left hepatic lobe lesion, nonspecific, potentially hemangioma. Liver measures 12.5 cm. Portal vein patent and normally directed. Gallbladder: Cholelithiasis, gallbladder distention, and wall thickening measuring up to 8 mm. Common bile duct: No biliary dilatation. CBD measures 3 mm. Pancreas: Hypoechoic appearance of the pancreas, which can be seen with pancreatitis. IMPRESSION: 1. Cholelithiasis, gallbladder distention, and wall thickening measuring up to 8 mm. Imaging appearance raises the possibility of cholecystitis. Geller sign reported as negative, although status of premedication is unknown. 2. Hypoechoic appearance of the pancreas, which can be seen with pancreatitis. Correlate with serum lipase. Electronically signed by: Hipolito Barkley M.D. 01/07/24 22:13 PM Cholangiopancreatography MRI 01/07/24 19:32 Exam(s): MRI MRCP EXAM: MR Abdomen Without Intravenous Contrast, MRCP Protocol CLINICAL HISTORY: Reason for exam: transaminitis, pancreatitis, gallstones. TECHNIQUE: Multiplanar magnetic resonance images of the abdomen without intravenous contrast using MRCP protocol. COMPARISON: CTA abdomen and pelvis 01/07/24 FINDINGS: Lung bases are clear. There is cholelithiasis, gallbladder distention, gallbladder wall edema. There is no intrahepatic or extrahepatic biliary dilatation. Common bile duct measures 7 mm, normal in caliber for patient age. There is no choledocholithiasis. Liver, spleen, and adrenal glands are unremarkable. There is a benign subcentimeter T2 hyperintense cyst in the left kidney; no follow-up is indicated. Kidneys appear otherwise unremarkable. There is no hydronephrosis. There is edema and fluid along the pancreas without pancreatic duct dilatation or organized peripancreatic collection. IMPRESSION: 1. Peripancreatic edema and fluid suggesting acute pancreatitis. Correlate with serum lipase. 2. Cholelithiasis and gallbladder wall edema, cholecystitis not excluded. 3. No biliary dilatation or choledocholithiasis. Electronically signed by: Hipolito Barkley M.D. 01/07/24 21:31 PM 01/07/24 17:43 CT angio chest dissec wo/w con Stat CTA abdomen pelvis w con [CT angio abdomen pelvis w con] Stat 01/07/24 19:30 US RUQ [US liver] Stat 01/07/24 19:32 MRI MRCP [MR MRCP] Stat Hospital Course (1) Pancreatitis: Acute gallstone pancreatitis with Acute cholecystitis-improving CT angiography/pelvis with innumerable gallstones identified within the gallbladder lumen, with suggestion to order right upper quadrant ultrasound. CT angiography chest was negative for aortic dissection Liver ultrasound showed cholelithiasis, gallbladder distention and wall thickening measuring up to 8 mm. Imaging appearance raises the possibility of cholecystitis , but Geller sign was negative. Hypoechoic appearance of the pancreas could be seen with pancreatitis MRCP showed peripancreatic edema and fluid suggesting acute pancreatitis. Cholelithiasis and gallbladder wall edema, with cholecystitis not excluded Lipase 7381 now down to 437 TGs and calcium levels normal. No EtOH use Total bili is elevated to 1.1 and white count was up but both now normalized Initially treated with IV Zosyn and now on ceftriaxone and flagyl-continue and convert to po Augmentin on discharge to complete the course Appreciate Gen Surgery management--> continue with antibiotics, advance diet as tolerated, plan for interval outpatient cholecystectomy. Advised to follow-up with Dr. Brice in 1 to 2 weeks Tolerating solid diet Cleared for discharge (2) Hypertension: Discharge on home medications (3) Diabetes: A1c 6.3 Hold metformin from home Placed on Accu-Cheks with NovoLog SSI (4) Back pain: suspect MSK in nature from lying in bed. +TTP on exam, no massess/hematoma Encouraged out of bed and ambulation Plan BPH can resume home tamsulosin Follow urine output Hyperlipidemia: can resume home atorvastatin now that taking po Discharge to home today Spoke to daughters, in detail to update them Total Time Total Time Spent Total Time Spent (In Minutes): 35 Discharge Plan Discharge Items Patient Disposition: Home - Home Health Services Reason For Visit: PANCREATITIS, TRANSAMINTIS Discharge Diagnosis: - Gall stone pancreatitis - Acute cholecystitis. Will need outpatient gall bladder removal Activity: Resume your previous activity Non-emergency contact: Primary Care Provider Call non-emergency contact if: you have any medication questions and your symptoms worsen Follow-up/Referrals: Damir Brice MD [Physician] - Brice Montoya DO [Primary Care Provider] - 01/18/24 2:00 pm (with dr castro) Diet: Heart Healthy Addtl Attending Provider Instructions: - Advised to follow-up with PCP in 1 week - Advised to follow-up with Dr. Brice in 1-2 weeks. You will need an outpatient gall bladder removal surgery soon. Pending Studies at Discharge: No Stand-Alone Forms: My [facility] Medications and DC Order Prescriptions: New amoxicillin-pot clavulanate [Augmentin] 500-125 mg tablet 1 tab PO BID 4 Days Qty: 8 0RF Continued cholecalciferol (vitamin D3) 50 mcg (2,000 unit) capsule 50 mcg PO DAILY omega-3 fatty acids-fish oil [Fish Oil] 360-1,200 mg capsule 1 cap PO QAM amlodipine 5 mg tablet 5 mg PO QAM metformin 500 mg tablet 500 mg PO QPM dutasteride-tamsulosin 0.5-0.4 mg capsule, ER multiphase 24 hr 1 cap PO QPM brinzolamide [Azopt] 1 % drops,suspension 1 drp ophthalmic (eye) BID Patient Comments: LEFT EYE Zioptan (PF) 0.0015 % dropperette 1 drp ophthalmic (eye) HS Patient Comments: LEFT EYE Rx Instructions: administer at bedtime cyanocobalamin (vitamin B-12) 500 mcg Tablet 500 mcg PO QAM atorvastatin 10 mg tablet 10 mg PO HS lisinopril 20 mg tablet 20 mg PO DAILY Discharge Orders: Discharge Order (Routine); Ordered 01/11/24 Ordered By: Mal Lord/Other Patient Handouts: A1C, Understanding Pancreatitis, Pancreatitis Acute Dc Admission Data Admit Date/Time: 01/07/24 22:06 Attending Provider: Mal Fleming Admit Provider: Stephen Santiago Primary Care Provider: Brice Montoya Other Providers: Stephen Santiago; Alexis Stout; [facility]
[2024-01-11 11:29] VITALS: PULSE 89
== END 2024-01-11 13:25 | disposition home health service (06) | DRG 444 ==
LOC: ED 17:11 → 2W 22:06 → SUATTDRO 22:06 → 2W 01-08 00:07